=== PATIENT | female | born 1980 | race Caucasian/White ===

== ENCOUNTER → 2016-07-19 | Outpatient (CLI) | payer OTHER ==
[~2016-07-19] MED LIST: CLC100X PO; DOCU100C31 PO; GEMF600T3 PO; INSU1INJ7 SQ; INSUINJ14 SQ; LISI-725 PO; ONDA4TAB10 SL; OXYC1TAB3 PO; SIMV40TA2 PO; SULF800T23 PO
[2016-07-19 16:44] LABS: BASO % 0.2 %; BASO ABS # 0.02 K/uL (0-0.2); COMPLETE YES; EOS % 1.8 %; HEMATOCRIT 42.2 % (37-47); IG% 0.5 %; LYMPH % 32.6 %; LYMPH ABS # 3.53 K/uL (1.2-3.4); MEAN CELL VOLUME 82.6 fL (80-100); MEAN CORPUSCULAR HEMOGLOBIN 27.8 pg (25-34); MEAN CORPUSCULAR HGB CONC 33.6 g/dl (32-36); MEAN PLATELET VOLUME 9.8 fL (7.4-10.4); MONO % 5.3 %; NEUT % 59.6 %; PLATELET COUNT 211 K/uL (130-400); RED BLOOD COUNT 5.11 M/uL (4.2-5.4); WHITE BLOOD COUNT 10.83 K/uL (4.8-10.8)
[2016-07-19 17:08] LABS: THYROID STIMULATING HORMONE 1.67 uIu/ml (0.300-4.500)
== END | disposition home or self-care (01) ==
LOC: C.LAB1850 15:31
PROVIDERS: ATTEND Nurse Practitioner
DX: R63.4 Abnormal weight loss (principal)

== ENCOUNTER → 2016-07-19 | Outpatient (CLI) | payer OTHER ==
--- NOTE | 2016-07-19 10:26 | DIAGNOSTIC IMAGING REPORT ---
TWO VIEW CHEST CLINICAL HISTORY: Weight loss. FINDINGS: PA and lateral chest radiographs are obtained. No prior studies are available for comparison at the time of dictation. Examination is degraded by large body habitus. The cardiomediastinal silhouette is unremarkable. The lungs and pleural spaces are clear. There is no pneumothorax. The bony thorax appears intact. IMPRESSION: No active disease in the chest. Electronically signed by: Fernando Mcgraw M.D. 07/19/2016 10:24 AM Dictated Date/Time: 07/19/2016 10:22 AM
== END | disposition home or self-care (01) ==
LOC: C.RADBBURG 10:02
PROVIDERS: ATTEND Nurse Practitioner
DX: R63.4 Abnormal weight loss (principal)

== ENCOUNTER → 2016-10-09 | Outpatient (CLI) | payer OTHER ==
--- NOTE | 2016-10-09 14:31 | DIAGNOSTIC IMAGING REPORT ---
L-SPINE MIN 4 VIEWS ROUTINE CLINICAL HISTORY: Lumbar back pain. COMPARISON: None FINDINGS: An intrauterine device is incidentally noted within the pelvis. Alignment of the lumbar spine is anatomic. Vertebral body heights are maintained. Minimally calcified disc material at the L3-L4 and L4-L5 levels are present. There may be mild to moderate central canal stenosis which is suboptimally assessed on this exam. IMPRESSION: 1. No lumbar spine fracture or subluxation. 2. Partially calcified disc material at the L3-L4 and L4-L5 levels with suspected mild to moderate central canal stenosis which is suboptimally assessed by radiography. Electronically signed by: Otis Nicholson M.D. 10/09/2016 2:29 PM Dictated Date/Time: 10/09/2016 2:23 PM
--- NOTE | 2016-10-09 14:34 | DIAGNOSTIC IMAGING REPORT ---
C-SPINE ROUTINE 4 OR 5 VIEWS CLINICAL HISTORY: Neck pain. COMPARISON STUDY: Cervical spine radiographs December 09, 2012. FINDINGS: Slight reversal of the normal cervical lordosis is unchanged. Vertebral body heights are maintained. There is no fracture or suspicious lesion. Minimal endplate osteophytosis is noted. There is mild multilevel facet arthrosis. IMPRESSION: 1. No cervical spine fracture. 2. Mild multilevel degenerative disc disease and facet arthrosis of the cervical spine. Electronically signed by: Otis Nicholson M.D. 10/09/2016 2:32 PM Dictated Date/Time: 10/09/2016 2:29 PM
== END | disposition home or self-care (01) ==
LOC: C.RAD1850 13:49
PROVIDERS: ATTEND Physician Assistant Medical
DX: M54.5 Low back pain (principal); M50.30 Other cervical disc degeneration, unspecified cervical region

== ENCOUNTER → 2016-10-23 | Outpatient (CLI) | payer OTHER ==
[2016-10-23 17:34] LABS: HEMATOCRIT 43.8 % (37-47); MEAN CELL VOLUME 84.2 fL (80-100); MEAN CORPUSCULAR HEMOGLOBIN 27.9 pg (25-34); MEAN CORPUSCULAR HGB CONC 33.1 g/dl (32-36); PLATELET COUNT 216 K/uL (130-400); WHITE BLOOD COUNT 11.58 K/uL (4.8-10.8)
[2016-10-23 17:48] LABS: ALT/SGPT 23 U/L (12-78); AST/SGOT 14 U/L (15-37); BLOOD UREA NITROGEN 9 mg/dl (7-18); BUN/CREATININE RATIO 11.9 (10-20); CALCIUM 8.6 mg/dl (8.5-10.1); CARBON DIOXIDE 29 mmol/L (21-32); CHLORIDE 105 mmol/L (98-107); CREATININE 0.75 mg/dl (0.60-1.20); GLUCOSE 107 mg/dl (70-99); POTASSIUM 4.1 mmol/L (3.5-5.1); SODIUM 141 mmol/L (136-145)
[2016-10-23 17:58] LABS: ALB/GLOB RATIO 0.9 (0.9-2); ALKALINE PHOSPHATASE 64 U/L (45-117); CHOLESTEROL 231 mg/dl (0-200); CHOLESTEROL/HDL RATIO 6.4; HDL CHOLESTEROL 36 mg/dl; TRIGLYCERIDES 415 mg/dl (0-150)
[2016-10-24 06:20] LABS: ESTIMATED AVERAGE GLUCOSE 169 mg/dl; HA1C FLAG Normal (Normal)
== END | disposition home or self-care (01) ==
LOC: C.LABBFT 14:56
PROVIDERS: ATTEND Internal Medicine
DX: E11.65 Type 2 diabetes mellitus with hyperglycemia (principal); E78.5 Hyperlipidemia, unspecified; E11.29 Type 2 diabetes mellitus with other diabetic kidney complication

== ENCOUNTER 2016-11-26 20:33 | Emergency (ER) | payer OTHER ==
[~2016-11-26] VITALS: Ht 156.8 cm; Wt 125.6 kg
[~2016-11-26 20:33] MED LIST changes: -DOCU100C31 PO; -GEMF600T3 PO; -ONDA4TAB10 SL; -OXYC1TAB3 PO; -SULF800T23 PO
[2016-11-26 20:36] VITALS: TEMP 36.7; Ht 156.8 cm; Wt 125.6 kg
[2016-11-26] MEDS ORDERED: ONDANSETRON INJ 2 MG/ML 2 ML VIAL IV STA (20:51)
[2016-11-26] MEDS ORDERED: MoRPHine SULFATE 4 MG/ML 1 ML CARP\\VIAL IV STA (20:51)
[2016-11-26] MEDS ORDERED: SODIUM CHLORIDE 0.9% 1000ML 1,000 ML IV STA (20:51)
[2016-11-26] MEDS ORDERED: DOCU100C31 PO (21:05)
[2016-11-26] MEDS ORDERED: GEMF600T3 PO (21:06)
[2016-11-26 21:10] LABS: BASO % 0.2 %; BASO ABS # 0.02 K/uL (0-0.2); COMPLETE YES; EOS % 1.2 %; HEMATOCRIT 45.2 % (37-47); IG% 0.3 %; LYMPH % 30.8 %; MEAN CELL VOLUME 83.5 fL (80-100); MEAN CORPUSCULAR HEMOGLOBIN 27.7 pg (25-34); MEAN CORPUSCULAR HGB CONC 33.2 g/dl (32-36); MEAN PLATELET VOLUME 9.7 fL (7.4-10.4); MONO % 5.7 %; NEUT % 61.8 %; PLATELET COUNT 204 K/uL (130-400); RED BLOOD COUNT 5.41 M/uL (4.2-5.4)
[2016-11-26 21:10] LABS: URINE APPEARANCE CLOUDY (CLEAR); URINE COLOR DK YELLOW; URINE EPITHELIAL CELL AUTO >30 /lpf (0-5); URINE NITRITE NEG (NEG); URINE SPECIFIC GRAVITY 1.029 (1.000-1.030); UROBILINOGEN NEG (NEG)
[2016-11-26 21:12] LABS: MANUAL MICROSCOPIC REQUIRED? NO; REVIEW REQ? YES
[2016-11-26 21:13] LABS: URINE BILIRUBIN NEG (NEG)
[2016-11-26 21:28] LABS: BUN/CREATININE RATIO 13.4 (10-20); CREATININE 0.88 mg/dl (0.60-1.20); POTASSIUM 3.8 mmol/L (3.5-5.1)
[2016-11-26] MEDS ORDERED: HYDROmorphone INJ 1 MG/ML SYR IV STA (21:50)
--- NOTE | 2016-11-26 21:54 | DIAGNOSTIC IMAGING REPORT ---
CT OF THE ABDOMEN AND PELVIS WITHOUT CONTRAST, STONE PROTOCOL CLINICAL HISTORY: Right flank pain. COMPARISON STUDY: CT of the abdomen and pelvis February 24, 2013. TECHNIQUE: Helical axial images of the abdomen and pelvis were obtained without IV or oral contrast according to renal stone protocol. FINDINGS: No renal, ureteral or bladder calculi are present. There is no hydronephrosis or ureter. An intrauterine device is in place. Evaluation of the abdomen and pelvis is suboptimal on this unenhanced exam. Unenhanced images of liver, spleen, adrenal glands and pancreas are unremarkable. Borderline splenomegaly is unchanged. There is no evidence for a bowel obstruction. The appendix is normal. No ascites is present. There is a tiny fat-containing umbilical hernia. The ovaries are not enlarged. No suspicious skeletal lesions are identified. No pneumatosis, free air or portal venous gas is present. IMPRESSION: 1. No urinary calculi or hydronephrosis. 2. No acute process within the abdomen or pelvis on unenhanced exam. Normal appendix. Electronically signed by: Otis Nicholson M.D. 11/26/2016 9:53 PM Dictated Date/Time: 11/26/2016 9:46 PM
[2016-11-26 22:04] LABS: CALCIUM 8.7 mg/dl (8.5-10.1)
[2016-11-26] MEDS ORDERED: SULFAMETHOXAZOLE/TRIMETHOPRIM DS 800/160MG TAB PO STA (22:06)
[2016-11-26] MEDS ORDERED: ONDA4TAB10 SL (22:11)
[2016-11-26] MEDS ORDERED: OXYC1TAB3 PO (22:11)
[2016-11-26] MEDS ORDERED: SULF800T23 PO (22:11)
[2016-11-26] MEDS ORDERED: ONDANSETRON HOME PACK 4MG OD TAB PO ONE (22:15)
[2016-11-26] MEDS ORDERED: OXYCODONE IR HOME PACK PO ONE (22:15)
[2016-11-26 22:18] VITALS: BP 128/85; PULSE 70; O2SAT 96
--- NOTE | 2016-11-27 00:03 | EMERGENCY ROOM VISIT NOTE ---
History Report prepared by Familia: Ivonne Rizzo Under the Supervision of: Dr. Anam Crum M.D. First contact with patient: 20:47 Chief Complaint: FLANK PAIN Stated Complaint: BACK PAIN,NAUSEA,THROWING UP History of Present Illness The patient is a 36 year old female who presents to the Emergency Room with complaints of intermittent right flank pain beginning last night. She describes the pain as sharp in sensation. The patient is experiencing nausea and vomiting. She has a history of kidney stones and states that this feels similar to her last stone but the pain is more severe. The patient states that she took about 20 Ibuprofen today with no relief of her symptoms. She denies urinary symptoms such as burning, blood in urine or increased frequency. She denies chance of as she has an IUD. Source of History: patient Onset: last night Position: other (right flank) Timing: intermittent Associated Symptoms: + nausea, + vomiting, No SOB, No chest pain, No urinary symptoms Review of Systems See HPI for pertinent positives & negatives. A total of 10 systems reviewed and were otherwise negative. Past Medical & Surgical Medical Problems: (1) DIAB ISAIAH WO COMPL, TYPE II OR UNSPEC TYPE, NOT UNCNTRLD (2) HYPERLIPIDEMIA NEC/NOS (3) MORBID OBESITY Family History Cancer Diabetes mellitus FHx: gallbladder disease Heart disease Hypertension Kidney disease Kidney stones Lung disease Social History Smoking Status: Current Every Day Smoker Marital Status: single Housing Status: lives with family Occupation Status: employed Current/Historical Medications Scheduled Gemfibrozil (Lopid), 600 MG PO BID Insulin Aspart (Novolog Penfill), 45 UNITS SQ AC Insulin Glargine (Lantus), 80 UNITS SQ QAM Lisinopril (Zestril), 20 MG PO DAILY Ondasetron Odt (Zofran Odt), 4 MG SL Q6H Simvastatin (Zocor), 40 MG PO QPM Sulfa/Trimethoprim (Bactrim Ds 800MG/160MG), 1 TAB PO BID Scheduled PRN Docusate Sodium (Docusate Sodium), 100 MG PO BID PRN for Constipation Oxycodone Ir (Roxicodone Ir), 5 MG PO Q4H PRN for Pain Allergies Coded Allergies: Acetaminophen (Verified Allergy, Intermediate, Vomiting, 03/12/16) Quinolones (Unverified Adverse Reaction, Mild, rapid eye movements, dizziness, 03/12/16) Physical Exam Vital Signs Date Time Temp Pulse Resp B/P Pulse Ox O2 Delivery O2 Flow Rate FiO2 11/26/16 22:18 70 18 128/85 96 Room Air 11/26/16 20:36 36.7 85 18 178/100 96 Room Air Physical Exam Constitutional: Vital signs reviewed. Eyes: Pupils are equal round reactive to light. Conjunctiva are noninjected. ENT: Pharynx is clear without erythema or exudate. Mucous membranes are moist. Neck supple without meningeal signs. Respiratory: Clear to auscultation bilaterally. Breath sounds are equal bilaterally. Cardiovascular: Regular rate and rhythm. No rubs or gallops. GI: Mild right upper quadrant tenderness. No guarding. Soft and nondistended. Bowel sounds are present. Musculoskeletal: No peripheral edema. No lower extremity tenderness. No CVA tenderness. Integumentary: No cyanosis. Neurological: The patient is awake and alert. No focal deficits. Psychiatric: Normal affect. Medical Decision & Procedures ER Provider Diagnostic Interpretation: CT results as stated below per my review and radiologist interpretation. CT OF THE ABDOMEN AND PELVIS WITHOUT CONTRAST, STONE PROTOCOL CLINICAL HISTORY: Right flank pain. COMPARISON STUDY: CT of the abdomen and pelvis February 24, 2013. TECHNIQUE: Helical axial images of the abdomen and pelvis were obtained without IV or oral contrast according to renal stone protocol. FINDINGS: No renal, ureteral or bladder calculi are present. There is no hydronephrosis or ureter. An intrauterine device is in place. Evaluation of the abdomen and pelvis is suboptimal on this unenhanced exam. Unenhanced images of liver, spleen, adrenal glands and pancreas are unremarkable. Borderline splenomegaly is unchanged. There is no evidence for a bowel obstruction. The appendix is normal. No ascites is present. There is a tiny fat-containing umbilical hernia. The ovaries are not enlarged. No suspicious skeletal lesions are identified. No pneumatosis, free air or portal venous gas is present. IMPRESSION: 1. No urinary calculi or hydronephrosis. 2. No acute process within the abdomen or pelvis on unenhanced exam. Normal appendix. Electronically signed by: Otis Nicholson M.D. 11/26/2016 9:53 PM Dictated Date/Time: 11/26/2016 9:46 PM Laboratory Results 11/26/16 21:00 Red Blood Count 5.41, Mean Corpuscular Volume 83.5, Mean Corpuscular Hemoglobin 27.7, Mean Corpuscular Hemoglobin Concent 33.2, Mean Platelet Volume 9.7, Neutrophils (%) (Auto) 61.8, Lymphocytes (%) (Auto) 30.8, Monocytes (%) (Auto) 5.7, Eosinophils (%) (Auto) 1.2, Basophils (%) (Auto) 0.2, Neutrophils # (Auto) 8.22, Lymphocytes # (Auto) 4.10, Monocytes # (Auto) 0.76, Eosinophils # (Auto) 0.16, Basophils # (Auto) 0.02 11/26/16 21:00 Test 11/26/16 20:55 11/26/16 21:00 Urine Color DK YELLOW Urine Appearance CLOUDY (CLEAR) Urine pH 6.0 (4.5-7.5) Urine Specific [place] 1.029 (1.000-1.030) Urine Protein 1+ (NEG) Urine Glucose (UA) NEG (NEG) Urine Ketones TRACE (NEG) Urine Occult Blood 2+ (NEG) Urine Nitrite NEG (NEG) Urine Bilirubin NEG (NEG) Urine Urobilinogen NEG (NEG) Urine Leukocyte Esterase SMALL (NEG) Urine WBC (Auto) >30 /hpf (0-5) Urine RBC (Auto) 5-10 /hpf (0-4) Urine Hyaline Casts (Auto) 1-5 /lpf (0-5) Urine Epithelial Cells (Auto) >30 /lpf (0-5) Urine Bacteria (Auto) 2+ (NEG) Urine Pathogenic Casts /lpf (0) Urine Test NEG (NEG) White Blood Count 13.30 K/uL (4.8-10.8) Red Blood Count 5.41 M/uL (4.2-5.4) Hemoglobin 15.0 g/dL (12.0-16.0) Hematocrit 45.2 % (37-47) Mean Corpuscular Volume 83.5 fL (80-100) Mean Corpuscular Hemoglobin 27.7 pg (25-34) Mean Corpuscular Hemoglobin Concent 33.2 g/dl (32-36) Platelet Count 204 K/uL (130-400) Mean Platelet Volume 9.7 fL (7.4-10.4) Neutrophils (%) (Auto) 61.8 % Lymphocytes (%) (Auto) 30.8 % Monocytes (%) (Auto) 5.7 % Eosinophils (%) (Auto) 1.2 % Basophils (%) (Auto) 0.2 % Neutrophils # (Auto) 8.22 K/uL (1.4-6.5) Lymphocytes # (Auto) 4.10 K/uL (1.2-3.4) Monocytes # (Auto) 0.76 K/uL (0.11-0.59) Eosinophils # (Auto) 0.16 K/uL (0-0.5) Basophils # (Auto) 0.02 K/uL (0-0.2) RDW Standard Deviation 43.5 fL (36.4-46.3) RDW Coefficient of Variation 14.2 % (11.5-14.5) Immature Granulocyte % (Auto) 0.3 % Immature Granulocyte # (Auto) 0.04 K/uL (0.00-0.02) Anion Gap 9.0 mmol/L (3-11) Est Creatinine Clear Calc Drug Dose 111.5 ml/min Estimated GFR () 98.0 Estimated GFR (Non- 84.5 BUN/Creatinine Ratio 13.4 (10-20) Calcium Level 8.7 mg/dl (8.5-10.1) Total Bilirubin 0.8 mg/dl (0.2-1) Direct Bilirubin 0.1 mg/dl (0-0.2) Aspartate Amino Transf (AST/SGOT) 11 U/L (15-37) Alanine Aminotransferase (ALT/SGPT) 17 U/L (12-78) Alkaline Phosphatase 63 U/L (45-117) Total Protein 7.7 gm/dl (6.4-8.2) Albumin 3.7 gm/dl (3.4-5.0) Lipase 174 U/L (73-393) Laboratory results as reviewed by me. Medications Administered Medications (Trade) Dose Ordered Sig/Juani Route Start Time Stop Time Status Last Admin Dose Admin Morphine Sulfate (MoRPHine SULFATE INJ) 4 mg ONE STAT IV 11/26/16 20:51 11/26/16 20:52 DC 11/26/16 21:08 4 MG Ondansetron HCl 4 mg 4 mg NOW STAT IV 11/26/16 20:51 11/26/16 20:52 DC 11/26/16 21:06 4 MG Sodium Chloride (Nss 1000ml) 1,000 ml @ 999 mls/hr Q1H1M STAT IV 11/26/16 20:51 11/26/16 21:51 DC 11/26/16 21:06 999 MLS/HR Hydromorphone HCl (Dilaudid Inj) 0.5 mg NOW STAT IV 11/26/16 21:50 11/26/16 21:51 DC 11/26/16 21:57 0.5 MG Trimethoprim/ Sulfamethoxazole (Septra Ds 800/ 160MG Tab) 1 tab NOW STAT PO 11/26/16 22:06 11/26/16 22:09 DC 11/26/16 22:14 1 TAB Oxycodone HCl (Roxicodone Immediate Rel 5MG Home Pack) 1 homepack UD ONCE PO 11/26/16 22:15 11/26/16 22:16 DC 11/26/16 22:15 1 HOMEPACK Ondansetron HCl (ZOFRAN ODT 4MG Home Pack) 1 homepack UD ONCE PO 11/26/16 22:15 11/26/16 22:16 DC 11/26/16 22:15 1 HOMEPACK ED Course 2047: The patient was evaluated in room B9. A complete history and physical exam was performed. 2050: Sodium Chloride 1,000 ml @ 999 mls/hr IV, Zofran Inj 4 mg IV, Morphine Sulfate Inj 4 mg IV. 2149: Dilaudid Inj 0.5 mg IV. 2205: Septra Ds 800/ 160 MG Tab 1 tab PO. 2208: The patient is feeling better. I discussed her test results. 5: Zofran ODT 4 mg Home Pack 1 homepack PO, Roxicodone Immediate Rel 5 mg Home Pack 1 homepack PO. 2217: Upon reevaluation, the patient appeared to have improvement of her symptoms. I discussed tonight's findings with her. She verbalized agreement of the treatment plan. She was discharged home. Medical Decision This is a 36-year-old female who presents with flank pain. Differential diagnosis includes renal colic, hydronephrosis, UTI, pyelonephritis, gallbladder disease. I did perform a limited focused review of portions of the patient's old chart on the electronic medical record. The patient has had no recent pertinent visits to this hospital. Medication Reconciliation: I attest that I have personally reviewed the patient' s current medication list. Blood Pressure Screening: Patient was found to have an elevated blood pressure and was referred to their primary doctor for recheck and further treatment. I did evaluate the patient as noted above. The patient is presenting with right flank pain. She states it feels similar to her prior kidney stone pain. IV access was established. I did treat her with IV morphine and Zofran. She was also given normal saline IV. She did feel better but still had pain and so was given Dilaudid 0.5 mg IV. I did order and personally review the patient's urinalysis as described above. She does have evidence of infection. A urine culture was sent. Urine was negative. I did order and review the patient's blood work as noted in the electronic medical record. Her white blood cell count is slightly elevated. I did order a CT of the abdomen and pelvis. I did review the images myself as well as the radiology report as described above. There is no evidence of kidney stone. There is no evidence of acute process. I did reassess the patient. She is feeling better. I did discuss the test results with the patient. I will treat her for a UTI and advise close follow up with her doctor. She was given Bactrim and she is allergic to quinolones. She was given a home pack for Zofran and oxycodone. She was given precautions regarding oxycodone and discharged with a prescription for Bactrim and oxycodone and Zofran. She was given return instructions as outlined below. [place] Drug Monitoring Program Search Results: patient reviewed within database, no issues identified Impression Primary Impression: Urinary tract infection Additional Impression: Right flank pain Scribe Attestation The scribe's documentation has been prepared under my direct and personally reviewed by me in its entirety. I confirm that the note above accurately reflects all work, treatment, procedures, and medical decision making performed by me. Departure Information Dispostion Home / Self-Care Prescriptions Ondasetron Odt (ZOFRAN ODT) 4 Mg Tab 4 MG SL Q6H for Nausea, #6 TAB Prov: Anam Crum M.D. 11/26/16 Oxycodone Ir (Roxicodone Ir) 5 Mg Tab 5 MG PO Q4H Y for Pain, #10 TAB Prov: Anam Crum M.D. 11/26/16 Sulfa/Trimethoprim (Bactrim Ds 800MG/160MG) Tab 1 TAB PO BID, #20 TAB Prov: Anam Crum M.D. 11/26/16 Referrals Rodriguez Dennis M.D. (PCP) Forms HOME CARE DOCUMENTATION FORM, IMPORTANT VISIT INFORMATION Patient Instructions ED Flank Pain Uncertain Cause, My [facility], UTI Additional Instructions You have been examined and treated today on an emergency basis only. This is not a substitute for, or an effort to provide, complete comprehensive medical care. It is impossible to recognize and treat all injuries or illnesses in a single emergency department visit. It is therefore important that you follow up closely with your physician. Call as soon as possible for an appointment. Return for worsening symptoms or if you develop fever, chest pain, shortness of breath or any other concerning symptoms. Problem Qualifiers Primary Impression: Urinary tract infection Urinary tract infection type: site unspecified Hematuria presence: with hematuria Qualified Codes: N39.0 - Urinary tract infection, site not specified ; R31.9 - Hematuria, unspecified
== END 2016-11-26 22:28 | disposition home or self-care (01) ==
LOC: C.EDB 20:34
DX: N39.0 Urinary tract infection, site not specified (principal); Z87.442 Personal history of urinary calculi; Z97.5 Presence of (intrauterine) contraceptive device; E11.9 Type 2 diabetes mellitus without complications; E78.5 Hyperlipidemia, unspecified; E66.01 Morbid (severe) obesity due to excess calories; Z68.43 Body mass index [BMI] 50.0-59.9, adult; Z80.9 Family history of malignant neoplasm, unspecified; Z83.3 Family history of diabetes mellitus; Z82.49 Family history of ischemic heart disease and other diseases of the circulatory system; Z84.1 Family history of disorders of kidney and ureter; F17.210 Nicotine dependence, cigarettes, uncomplicated; Z79.4 Long term (current) use of insulin; Z79.899 Other long term (current) drug therapy

== ENCOUNTER → 2017-10-16 | Outpatient (CLI) | payer OTHER ==
[~2017-10-16] MED LIST changes: -CLC100X PO; +DOCU100C31 PO; +GEMF600T3 PO
[2017-10-16 12:31] LABS: HEMOGLOBIN A1C 11.2 % (4.5-5.6)
== END | disposition home or self-care (01) ==
LOC: C.LABBFT 11:05
PROVIDERS: ATTEND Physician Assistant Medical
DX: E11.65 Type 2 diabetes mellitus with hyperglycemia (principal)

== ENCOUNTER 2025-02-14 17:53 | Inpatient (IN) ==
--- NOTE | 2025-02-14 18:19 | Emergency Department Note ---
Impression & Plan Cellulitis of left foot ED Provider Note CHIEF COMPLAINT: Foot pain HISTORY OF PRESENTING ILLNESS: The patient is a 44-year-old female who arrives to the emergency department for evaluation of left foot pain. She reports history of diabetes type 2, poorly controlled. She states past medical history of hidradenitis suppurativa, with multiple abscesses that have required incision and drainage, however never a abscess to the foot. She reports she noticed it approximately 2 days ago, however it is significantly worsened. She states there is drainage present, and she is concerned for worsening infection. She denies fever, proximal extremity pain, or limited range of motion. She is able to ambulate, however slightly painful. She is resting in the room upon arrival, comfortable appearing, eating. REVIEW OF SYSTEMS: See HPI for pertinent positives and pertinent negatives. ALLERGIES: See below MEDICATIONS: See below PAST MEDICAL HISTORY: See below PHYSICAL EXAM: VITALS: Vitals are noted on the nurse's note and reviewed by myself. Vital signs stable. GENERAL: 44-year-old female, in no acute distress, nondiaphoretic, well- developed well-nourished. SKIN: Dorsal left foot, erythema, induration, extending between the 4th and 5th digits, crusting noted. HEART: Regular rate and rhythm without murmurs gallops or rubs. LUNGS: Clear to auscultation bilaterally without wheezes, rales or rhonchi. No dullness to percussion. No retractions or accessory muscle use. MUSCULOSKELETAL: Full ROM, digits of the left foot. Tenderness to palpation dorsal aspect, of distal foot, just proximal to digits. Sensation intact to dull and sharp of distal foot, and digits. DP pulse intact. NEURO: Patient was alert and oriented to person place and time. Normal sensation to light and sharp touch. Deep tendon reflexes 2+ throughout. No focal neurological deficits. DIFFERENTIAL DIAGNOSIS: Cellulitis, infection, MRSA, abscess, osteomyelitis, as well as other pathologies. ED COURSE AND MEDICAL DECISION MAKING: MEDICATIONS GIVEN: Morphine 4 mg IV, oxycodone 5 mg p.o., vancomycin 2750 mg, Zosyn 4.5 g. INTERPRETATION OF LABS: I interpreted the labs with full lab results as below in the lab section of this note. Pertinent lab results discussed in the MDM section below. INTERPRETATION OF IMAGING: Imaging studies were interpreted by myself and read by radiology as per the imaging section of this note. CHRONIC MEDICAL/SOCIAL CONDITIONS AFFECTING CARE: Uncontrolled DM2 CONSULTATIONS: Dr. Yost, podiatry. MDM SUMMARY: The patient is a pleasant, 44-year-old female who arrives to the emergency department for evaluation of the above-stated complaint. Saline lock was established, CBC, CMP were obtained. Lab work shows no leukocytosis, no anemia. CMP shows elevated glucose at 302, with no other concerning findings. CT imaging of the foot was obtained which shows no abscess, however physical examination shows findings consistent with likely abscess formation. After cleaning the area, it does appear there were 2 foreign body hairs that were removed from a small open area between the digits. Drainage was present, and collected for wound culture. Due to the patient's complicated medical history, with uncontrolled diabetes, and likely diabetic neuropathy, she will require admission for IV antibiotics, incision and drainage, and close watch. I spoke with Dr. Yost, from podiatry who agreed to evaluate the patient in the morning. [facility], with broad-spectrum IV coverage administered. Please refer to their documentation for further patient workup and care. DIAGNOSIS: Cellulitis of left foot The chart was completed utilizing [employer] Speech voice recognition software. Grammatical errors, random word insertions, pronoun errors, and incomplete sentences are an occasional consequence of this system due to software limitations, ambient noise, and hardware issues. Any formal questions or concerns about the content, text, or information contained within the body of this dictation should be directly addressed to the provider for clarification. Past Med/Surg History Problem List (Updated 02/17/25 @ 01:47 by OSIRIS Razo) Cellulitis of left foot (Acute) Hyperglycemia due to diabetes mellitus Hyperglycemia (Acute) Urinary urgency Intertrigo (Chronic) Necrobiosis lipoidica diabeticorum (Acute) Hidradenitis suppurativa (Acute) Lumbar back pain (Acute) Depression with anxiety (Chronic) Anxiety (Acute) Constipation (Acute) Endometrial polyp (Acute) Essential hypertriglyceridemia (Acute) Hyperlipidemia (Chronic) Microalbuminuria (Acute) Vitamin D deficiency (Acute) Medical History Encounter for pre-operative examination Morbid obesity Diabetes mellitus type 2, uncontrolled Tobacco abuse Diabetic infection of left foot PVD (peripheral vascular disease) Acute cholecystitis Cholecystitis Cellulitis and abscess of upper arm Surgical History Hx laparoscopic cholecystectomy (12/01/24) Laparoscopic Cholecystectomy - Carlos Wilson DO History of D&C Family History Mother Diabetes Father Lung cancer Myocardial infarction Grandfather Myocardial infarction Aunt Breast cancer Ovarian cancer Uncle Alzheimer disease Denies family history of Prostate cancer Colorectal cancer Social History Smoking Status: Current every day smoker Tobacco Type: Cigarettes Age Started Using Tobacco: 0; packs per day: 0; Cigarettes Per Day: 10 cigarettes/half a pack a day; Second Hand Exposure: No; Do You Dip or Chew Tobacco: No; Hx Alcohol Use: No Hx Substance Use: No Preferred Language: Occitan Communication Ability: Effective Visual Impairment: No Limitations Hearing Ability: Normal Bias Cutting Machine Operator Required: No Beliefs That Will Affect Care: None Current Living Situation: Spouse and Family Current Living Situation Comment: lives at home with and daughter current occupational status: employed Feels Safe at Home: Yes Assistive Devices: None Allergies Allergies Allergy/AdvReac Type Severity Reaction Status Date / Time acetaminophen Allergy Intermediate Vomiting Verified 12/15/24 14:05 hydromorphone [From Dilaudid] AdvReac Severe "I forget Verified 12/15/24 14:05 to breath" levofloxacin [From Levaquin] AdvReac Mild dizziness Verified 12/15/24 14:05 and rash Quinolones AdvReac Mild rapid eye Verified 12/15/24 14:05 movements, dizziness Home Meds Home Medications Medication Instructions Recorded Confirmed insulin glargine 100 unit/mL (3 34 unit subcut DAILY 01/11/25 02/14/25 mL) subcutaneous pen (Lantus Solostar U-100 Insulin) Previous Rx's Medication Instructions Recorded blood-glucose meter (OneTouch #1 ea 04/05/22 Ultra2 Meter kit) blood sugar diagnostic (Contour #100 ea 12/07/24 Next Test Strips) lancets (Microlet Lancet) #100 ea 12/07/24 pen needle, diabetic 32 gauge x #100 ea 12/07/24 5/32" (Pen Needle) rosuvastatin 20 mg tablet 20 mg PO QAM High cholesterol #30 12/07/24 tabs blood-glucose sensor (Dexcom G7 #3 ea 01/11/25 Sensor device) blood-glucose,clinical phlebotomist,cont #1 ea 01/11/25 (Dexcom G7 [place]) metformin 500 mg tablet,extended 500 mg PO BID #60 tabs 01/11/25 release 24 hr Results & Data (ED) Vital Signs Vital Signs - 24 hr 02/14/25 18:10 Temperature 36.9 C Temperature Source Temporal Artery Scan Pulse Rate 101 H Respiratory Rate 16 Respiratory Effort / Characteristics Non-Labored Spontaneous Respiratory Depth Normal Respiratory Pattern Regular Blood Pressure 137/86 Blood Pressure Mean 103 Pulse Oximetry 98 Oxygen Delivery Method Room Air Sepsis Recent Fever Within 48 Hours No Sepsis New/Unexplained Change in Mental Status No Sepsis Action Taken by Nursing No Action Required Home Medications Current Medication List: was personally reviewed by me Laboratory Data Attestation: I reviewed the patient's lab results. 02/16/25 07:53 02/16/25 07:53 Lab Results 02/14/25 Range/Units 18:29 WBC 9.82 (4.8-10.8) K/ul RBC 5.29 (4.20-5.40) M/uL Hgb 13.9 (12.0-16.0) g/dl Hct 42.3 (37.0-47.0) % MCV 80.0 (80.0-100.0) fL MCH 26.3 (25.0-34.0) pg MCHC 32.9 (32.0-36.0) g/dL RDW Std Deviation 41.7 (36.4-46.3) fL RDW Coeff of Tre 14.4 (11.5-14.5) % Plt Count 210 (130-400) K/uL MPV 9.4 (9.4-12.4) fL Immature Gran % (Auto) 0.4 % Neut % (Auto) 63.8 % Lymph % (Auto) 28.9 % Morton % (Auto) 5.3 % Eos % (Auto) 1.3 % Baso % (Auto) 0.3 % Neut # (Auto) 6.26 (1.40-6.50) K/uL Lymph # (Auto) 2.84 (1.20-3.40) K/uL Morton # (Auto) 0.52 (0.11-0.59) K/uL Eos # (Auto) 0.13 (0.00-0.50) K/uL Baso # (Auto) 0.03 (0.00-0.20) K/uL Immature Gran # (Auto) 0.04 (0.01-0.20) K/uL Sodium 136 (136-145) mmol/L Potassium 4.0 (3.5-5.1) mmol/L Chloride 101 (98-107) mmol/L Carbon Dioxide 29 (21-32) mmol/L Anion Gap 6 (3-11) BUN 11 (6-23) mg/dl Creatinine 0.82 (0.6-1.2) mg/dl Est Cr Clr Drug Dosing Not Reportable eGFR 90.40 BUN/Creatinine Ratio 13.4 (10-20) Glucose 302 H* (70-99(Fasting)) mg/dl Calcium 9.4 (8.6-10.3) mg/dl Total Bilirubin 0.6 (0.2-1.0) mg/dl AST 13 (13-39) U/L ALT 13 (7-52) U/L Alkaline Phosphatase 101 (34-104) U/L Total Protein 7.2 (6.0-8.3) gm/dl Albumin 3.8 (3.4-5.0) gm/dl Globulin 3.4 (2.5-4.0) gm/dl Albumin/Globulin Ratio 1.1 (0.9-2) Administered Medications Vancomycin HCl 1,250 mg/ (Sodium Chloride) 275 mls @ 200 mls/hr IV Q12H [facility] Stop: 02/22/25 11:59 Last Infusion: 02/17/25 00:48 Dose: Infused Documented By: Admin: 02/16/25 23:25 Dose: 200 mls/hr Documented By: Infusion: 02/16/25 13:51 Dose: Infused Documented By: jewel Admin: 02/16/25 12:20 Dose: 200 mls/hr Documented By: jewel Infusion: 02/16/25 01:24 Dose: Infused Documented By: Admin: 02/16/25 00:01 Dose: 200 mls/hr Documented By: Infusion: 02/15/25 13:01 Dose: Infused Documented By: Admin: 02/15/25 11:37 Dose: 200 mls/hr Documented By: LILLY Piperacillin Sod/Tazobactam Sod (Zosyn) 4.5 gm in 100 mls @ 25 mls/hr IV Q8H [facility]; Protocol Stop: 02/22/25 03:59 Last Infusion: 02/16/25 23:33 Dose: Infused Documented By: Admin: 02/16/25 19:27 Dose: 25 mls/hr Documented By: Infusion: 02/16/25 16:44 Dose: Infused Documented By: jewel Admin: 02/16/25 12:21 Dose: 25 mls/hr Documented By: jewel Infusion: 02/16/25 09:03 Dose: Infused Documented By: jewel Admin: 02/16/25 04:48 Dose: 25 mls/hr Documented By: Infusion: 02/16/25 00:42 Dose: Infused Documented By: Admin: 02/15/25 20:42 Dose: 25 mls/hr Documented By: Infusion: 02/15/25 17:03 Dose: Infused Documented By: Admin: 02/15/25 12:52 Dose: 25 mls/hr Documented By: Infusion: 02/15/25 09:08 Dose: Infused Documented By: Admin: 02/15/25 04:33 Dose: 25 mls/hr Documented By: NISHA Insulin Aspart (Insulin Aspart Per Unit Charge) 0 units SC ACHS [facility] Stop: 03/17/25 07:29 Last Admin: 02/16/25 20:31 Dose: 3 units Documented By: NISHA Co-signed By: MARY Admin: 02/16/25 18:28 Dose: 6 units Documented By: jewel Co-signed By: LILLY Admin: 02/16/25 13:29 Dose: 9 units Documented By: jewel Co-signed By: LILLY Admin: 02/16/25 09:17 Dose: 10 units Documented By: jewel Co-signed By: LILLY Admin: 02/15/25 20:41 Dose: Not Given Documented By: Admin: 02/15/25 18:18 Dose: Not Given Documented By: Admin: 02/15/25 12:58 Dose: 2 units Documented By: LILLY Co-signed By: KKS Admin: 02/15/25 09:37 Dose: 11 units Documented By: LILLY Co-signed By: CASPER Insulin Glargine (Lantus Per Unit Charge) 34 units SQ DAILY [facility] Stop: 03/17/25 08:59 Last Admin: 02/16/25 08:52 Dose: 34 units Documented By: jewel Co-signed By: LILLY Admin: 02/15/25 09:37 Dose: 34 units Documented By: LILLY Co-signed By: CASPER Metformin HCl (Metformin Hcl Er 500 Mg Tabcr) 500 mg PO BID [facility] Stop: 03/17/25 20:59 Last Admin: 02/16/25 20:31 Dose: 500 mg Documented By: Admin: 02/16/25 08:26 Dose: 500 mg Documented By: jewel Admin: 02/15/25 20:43 Dose: 500 mg Documented By: NISHA Morphine Sulfate (Morphine Sulfate 4 Mg/Ml 1 Ml Carp\\Vial) 4 mg IV Q4H PRN PRN Reason: Severe Pain (Scale 7, 8, 9,10) Stop: 03/01/25 09:59 Last Admin: 02/16/25 23:28 Dose: 4 mg Documented By: Admin: 02/16/25 18:28 Dose: 4 mg Documented By: jewel Admin: 02/16/25 13:30 Dose: 4 mg Documented By: jewel Admin: 02/16/25 08:51 Dose: 4 mg Documented By: jewel Admin: 02/16/25 04:50 Dose: 4 mg Documented By: Admin: 02/16/25 00:01 Dose: 4 mg Documented By: Admin: 02/15/25 18:28 Dose: 4 mg Documented By: LILLY Oxycodone/Acetaminophen (Oxycodone/Acetaminophen 5mg/325mg Tab) 1 tab PO Q4H PRN PRN Reason: Pain Stop: 03/01/25 09:35 Last Admin: 02/16/25 21:18 Dose: 1 tab Documented By: Admin: 02/16/25 16:43 Dose: 1 tab Documented By: jewel Admin: 02/15/25 09:58 Dose: 1 tab Documented By: LILLY Rosuvastatin Calcium (Rosuvastatin Calcium 20 Mg Tab) 20 mg PO QAM [facility] Stop: 03/17/25 08:59 Last Admin: 02/16/25 08:26 Dose: 20 mg Documented By: jewel Admin: 02/15/25 08:08 Dose: 20 mg Documented By: PLANT NURSERY WORKER Discontinued Medications Bupivacaine HCl (Bupivacaine 0.5 % 5 Mg/1 Ml Mpf 30ml Vial) Confirm Administered Dose 30 ml .ROUTE .STK-MED ONE Stop: 02/15/25 16:40 Last Admin: 02/15/25 17:00 Dose: 10 ml Documented By: [id number] Fentanyl Citrate (Fentanyl Citrate Pf 100 Mcg/2 Ml Vial) 25 mcg IV Q5M PRN PRN Reason: PACU Use Only-Pain Stop: 02/15/25 23:59 Last Admin: 02/15/25 17:42 Dose: 25 mcg Documented By: Admin: 02/15/25 17:37 Dose: 25 mcg Documented By: Admin: 02/15/25 17:32 Dose: 25 mcg Documented By: Admin: 02/15/25 17:27 Dose: 25 mcg Documented By: DALE Vancomycin HCl 2,750 mg/ (Sodium Chloride) 555 mls @ 200 mls/hr IV NOW ONE Stop: 02/15/25 00:17 Last Infusion: 02/15/25 01:53 Dose: Infused Documented By: Admin: 02/14/25 23:06 Dose: 200 mls/hr Documented By: BEVERLY Metronidazole (Flagyl) 500 mg in 100 mls @ 100 mls/hr IV NOW STA; Protocol Stop: 02/14/25 22:47 Last Admin: 02/14/25 22:11 Dose: Not Given Documented By: FRED Cefepime HCl (Maxipime 2000mg) 2,000 mg in 20 mls @ 5 mls/min IV NOW STA Stop: 02/14/25 22:02 Last Admin: 02/14/25 22:11 Dose: Not Given Documented By: FRED Piperacillin Sod/Tazobactam Sod (Zosyn) 4.5 gm in 100 mls @ 200 mls/hr IV NOW ONE; Protocol Stop: 02/14/25 22:35 Last Infusion: 02/15/25 02:14 Dose: Infused Documented By: Admin: 02/14/25 22:25 Dose: 200 mls/hr Documented By: FRED Ioversol (Optiray 320 100ml) 93 ml IV ONCE ONE Stop: 02/14/25 19:40 Last Admin: 02/14/25 19:39 Dose: 93 ml Documented By: CHRISTINA Miscellaneous (Patient's Height &/Or Weight Needed) 1 each N/A Q2H STA Stop: 02/15/25 01:00 Last Admin: 02/15/25 02:11 Dose: 1 each Documented By: NISHA Oxycodone HCl (Oxycodone Hcl Ir 5 Mg Tab (Immediate Release)) 5 mg PO NOW STA Stop: 02/14/25 21:49 Last Admin: 02/14/25 22:10 Dose: 5 mg Documented By: FRED Imaging Data Attestation: I personally reviewed and interpreted this imaging study as follows: Discharge Plan Visit Data Chief Complaint: Skin Problem Stated Complaint: ABSCESS, LT FOOT ED Provider: Laurie Reynoso ED Midlevel Provider: Joana Holden Discharge Problem: Cellulitis of left foot Patient Disposition: Admitted As Inpatient Condition: Fair Discharge Instructions Interventions: ED Discharge Assessment Last Done: 02/15/25 00:13
[2025-02-14 18:43] LABS: Hematocrit (blood only) 42.3 % (37.0-47.0); Hemoglobin 13.9 g/dl (12.0-16.0); Immature Granulocytes # (auto) 0.04 K/uL (0.01-0.20); Immature Granulocytes % (auto) 0.4 %; Mean Corpuscular Hemoglobin 26.3 pg (25.0-34.0); Mean Corpuscular Volume 80.0 fL (80.0-100.0); Platelet Count 210 K/uL (130-400); RDW Standard Deviation 41.7 fL (36.4-46.3); Red Blood Count 5.29 M/uL (4.20-5.40); White Blood Count 9.82 K/ul (4.8-10.8)
[2025-02-14 19:17] LABS: Alanine Aminotransferase 13 U/L (7-52); Albumin Globulin Ratio 1.1 (0.9-2); Alkaline Phosphatase 101 U/L (34-104); Anion Gap 6 (3-11); Bilirubin,Total 0.6 mg/dl (0.2-1.0); Blood Urea Nitrogen 11 mg/dl (6-23); Calcium 9.4 mg/dl (8.6-10.3); Carbon Dioxide 29 mmol/L (21-32); Chloride 101 mmol/L (98-107); Globulin 3.4 gm/dl (2.5-4.0); Glucose 302 mg/dl (70-99(Fasting)); Potassium 4.0 mmol/L (3.5-5.1); Sodium 136 mmol/L (136-145); Total Protein 7.2 gm/dl (6.0-8.3)
[2025-02-14] MEDS: OPTIRAY 320 100ml IV ONE (19:39)
--- NOTE | 2025-02-14 20:48 | CT Scan Report ---
HISTORY: Infection/abscess. TECHNIQUE: CT of the left foot was performed with contrast. Images are presented in axial, sagittal, and coronal reformats. COMPARISON: None. FINDINGS: Extensive soft tissue swelling throughout the lower leg and ankle. Extensive soft tissue swelling is seen throughout the foot no well-developed drainable fluid collection or abscess is identified. Edema is most confluent involving the lateral aspect of the lower leg and lateral aspect of the dorsal hindfoot. The distal tibia and fibula appear intact. the bones appear intact. No obvious osseous erosion or periosteal reaction is evident.Moderate size plantar and Achilles enthesophytes are noted. There are mild degenerative changes of the foot and ankle. IMPRESSION: * Extensive soft tissue edema throughout the lower leg, ankle, and foot is most pronounced along the lateral lower leg and ankle and dorsal foot. No well-developed drainable fluid collection or abscess is seen. Findings suggesting Cellulitis. * No acute osseous abnormality. If there is clinical concern for osteomyelitis, MRI would provide a more sensitive evaluation. * Additional chronic and/or incidental findings as detailed above ACT 112: Positive. There are findings on this exam that require communication between the performing entity and the patient following Patient Test Result Information Act ([place] ACT 112) guidelines. Electronically signed by Braxton Horton 02-14-2025 8:48 PM
[2025-02-14] MEDS ORDERED: VANCOMYCIN CONSULT ACTIVE PRN (21:48)
[2025-02-14] MEDS ORDERED: CEFEPIME 2 GM VIAL IV STA (21:48)
[2025-02-14] MEDS: metroNIDAZOLE 500 MG/100 ML BAG IV STA (22:11)
[2025-02-14] MEDS: CEFEPIME 2000MG 2,000 MG/20 ML SYR IV STA (22:11)
--- NOTE | 2025-02-14 22:20 | History & Physical Report ---
Date of Service February 14, 2025 Assessment & Plan (1) Diabetic infection of left foot: (2) Hyperglycemia due to diabetes mellitus: (3) Hyperlipidemia: Plan The patient is a 44-year-old female with a past medical history including hyperglycemia associated with diabetes mellitus, tobacco abuse, necrobiosis lipoid diabeticorum, hidradenitis suppurativa, depression with anxiety, essential hypertriglyceridemia, morbid obesity, and vitamin D deficiency. She presents to the emergency department with worsening left foot pain, swelling and erythema. In the emergency department she underwent a CT scan of left foot, which showed extensive soft tissue edema throughout the lower leg, ankle and foot, which is most consistent with cellulitis and abscess. She has been referred for evaluation for admission. In emergency department she was started on vancomycin IV and Zosyn IV. Diabetic left foot infection- Continue vancomycin IV and Zosyn IV CT without drainable collection or sign of abscess Patient cannot take acetaminophen due to vomiting Oxycodone 5 mg by mouth every 6 hours as needed for moderate to severe pain Consult podiatry Hyperglycemia due to diabetes mellitus- Continue glargine 34 units subcu daily Hold metformin Placed on Accu-Cheks with NovoLog SSI Check hemoglobin A1c Hyperlipidemia- Continue rosuvastatin History of Present Illness Chief Complaint: The patient presents to the emergency department with complaint of worsening left foot pain and swelling. Primary Care Provider: Dieudonne Duque, The patient is a 44-year-old female with a past medical history including hyperglycemia associated with diabetes mellitus, tobacco abuse, necrobiosis lipoid diabeticorum, hidradenitis suppurativa, depression with anxiety, essential hypertriglyceridemia, morbid obesity, and vitamin D deficiency. She presents to the emergency department with worsening left foot pain, swelling and erythema. In the emergency department she underwent a CT scan of left foot, which showed extensive soft tissue edema throughout the lower leg, ankle and foot, which is most consistent with cellulitis and abscess. She has been referred for evaluation for admission. In emergency department she was started on vancomycin IV and Zosyn IV. Allergies Allergy/AdvReac Type Severity Reaction Status Date / Time acetaminophen Allergy Intermediate Vomiting Verified 12/15/24 14:05 hydromorphone [From Dilaudid] AdvReac Severe "I forget Verified 12/15/24 14:05 to breath" levofloxacin [From Levaquin] AdvReac Mild dizziness Verified 12/15/24 14:05 and rash Quinolones AdvReac Mild rapid eye Verified 12/15/24 14:05 movements, dizziness Home Medications Medication Instructions Recorded Confirmed Type blood-glucose meter (OneTouch #1 ea 04/05/22 12/15/24 Rx Ultra2 Meter kit) blood sugar diagnostic (Contour #100 ea 12/07/24 12/15/24 Rx Next Test Strips) lancets (Microlet Lancet) #100 ea 12/07/24 12/15/24 Rx pen needle, diabetic 32 gauge x #100 ea 12/07/24 12/15/24 Rx 5/32" (Pen Needle) rosuvastatin 20 mg tablet 20 mg PO QAM High cholesterol #30 12/07/24 02/14/25 Rx tabs blood-glucose sensor (Dexcom G7 #3 ea 01/11/25 01/11/25 Rx Sensor device) blood-glucose,proposal manager,cont #1 ea 01/11/25 01/11/25 Rx (Dexcom G7 Farm Supervisor) insulin glargine 100 unit/mL (3 34 unit subcut DAILY 01/11/25 02/14/25 History mL) subcutaneous pen (Lantus Solostar U-100 Insulin) metformin 500 mg tablet,extended 500 mg PO BID #60 tabs 01/11/25 02/14/25 Rx release 24 hr Past Med/Surg History Problem List (Updated 02/14/25 @ 23:56 by Tyrel Loco MD) Hyperglycemia due to diabetes mellitus Diabetic infection of left foot Hyperglycemia (Acute) Tobacco abuse Urinary urgency Intertrigo (Chronic) Necrobiosis lipoidica diabeticorum (Acute) Hidradenitis suppurativa (Acute) Lumbar back pain (Acute) Depression with anxiety (Chronic) Anxiety (Acute) Constipation (Acute) Diabetes mellitus type 2, uncontrolled (Chronic) Endometrial polyp (Acute) Essential hypertriglyceridemia (Acute) Hyperlipidemia (Chronic) Microalbuminuria (Acute) Morbid obesity (Chronic) Vitamin D deficiency (Acute) Medical History (Updated 02/14/25 @ 23:56 by Tyrel Loco MD) Acute cholecystitis Cholecystitis Cellulitis and abscess of upper arm Surgical History Hx laparoscopic cholecystectomy (12/01/24) History of D&C Family History Mother Diabetes Father Lung cancer Myocardial infarction Grandfather Myocardial infarction Aunt Breast cancer Ovarian cancer Uncle Alzheimer disease Denies family history of Prostate cancer Colorectal cancer Social History Smoking Status: Current every day smoker Tobacco Type: Cigarettes Age Started Using Tobacco: 0; packs per day: 0; Cigarettes Per Day: 1/2 pack per day; Second Hand Exposure: Yes; Do You Dip or Chew Tobacco: No; Hx Alcohol Use: No Hx Substance Use: No Preferred Language: Greenlandic Communication Ability: Effective Visual Impairment: No Limitations Hearing Ability: Normal Hot Oiler Required: No Beliefs That Will Affect Care: None Current Living Situation: Spouse and Family Current Living Situation Comment: lives at home with and daughter current occupational status: employed Feels Safe at Home: No Is there a partner from a previous relationship who is making you feel unsafe now?: No Assistive Devices: None Review of Systems Review of Systems: The patient denies chest pain, palpitations, shortness of breath, dyspnea on exertion, cough, sore throat, fevers, chills, sweats, weight change, fatigue, nausea, vomiting, diarrhea , constipation, abdominal pain, pelvic pain, blood in urine or stool, dysuria, urinary frequency or urgency, lightheadedness, dizziness, headache, memory loss, loss of consciousness, imbalance, focal or generalized weakness, numbness or tingling in arms or legs, generalized arthralgias or myalgias, back or neck pain, or night sweats. The review of systems is otherwise negative other than for that already noted above, and at least 10 systems have been reviewed. Physical Exam Physical Exam: The patient is awake, alert and oriented 3, well developed and well nourished, normocephalic and atraumatic, lying in bed and in no acute distress. HEENT--PERRL, EOMI, mucous membranes and oropharynx normal Neck--supple. No JVD. No bruits. Thyroid normal, trachea midline, no adenopathy . Heart--normal S1 and S2. No murmurs, rubs or gallops. Lungs--clear bilaterally, no respiratory distress, no accessory muscle use. Abdomen--normal bowel sounds and soft. Nontender. Nondistended, no hernias or masses, no organomegaly. Extremities/ Dermatologic--soft tissue swelling and erythema noted over lateral surface of the dorsum of the foot, with severe pain with light pressure Neurologic--cranial nerves II through XII grossly intact. Rheumatologic--normal range of motion. Psychiatric--normal affect. Results & Data Results & Data Vital Signs (Past 12 Hours) Vital Signs Temp Pulse Resp BP Pulse Ox O2 Del Method 02/14/25 18:10 36.9 C 101 H 16 137/86 98 Room Air Code Status & VTE Plan Code Status Full code VTE Prophylaxis Plan VTE Prophylaxis will be ordered: Yes PG Care Time/CCT Total # of Minutes Spent Total Time Spent with Patient: Total time spent is greater than 50% in coordination of care (as documented) at patient's floor/unit and/or counseling patient: Coding Level of Care Code 26814 INT INP/OBS CARE 3/75MIN Diagnoses Diabetic infection of left foot E11.628; L08.9 Hyperglycemia due to diabetes mellitus E11.65 Hyperlipidemia E78.5
[2025-02-14] MEDS: PIPERACILLIN/TAZOBACTAM 4.5 GM/100 ML BAG IV ONE (22:25)
--- NOTE | 2025-02-14 22:30 | Podiatry Consultation ---
Date of Consultation February 14, 2025 Assessment & Plan (1) Diabetes mellitus type 2, uncontrolled: (2) Diabetic infection of left foot: (3) Tobacco abuse: (4) Hyperlipidemia: (5) PVD (peripheral vascular disease): (6) Morbid obesity: Plan -All notes, labs and imaging reviewed - Vascular studies ordered, pending Infectious disease consulted, appreciate recommendations Cultures: Pending and will be taken IntraOp -Patient could not tolerate dressing to left foot today. If patient tolerates can proceed with alginate and DSD. - Reviewed CT scan of the left foot. Vascular studies ordered and pending. Will plan on incision and drainage of left foot after vascular studies. Continue with conservative management for now. History of Present Illness Reason for Consultation: Patient is a 44-year-old female that was consulted for a left diabetic foot wound and abscess. Patient states that this has been going on since Saturday and has progressively gotten worse. Patient states that redness pain edema and pain to palpation has increased significantly since Saturday. Patient states that there has also been an increase with drainage. This prompted patient to come to the emergency department for further evaluation. Patient was admitted for this reason and patient was consulted for management. No other pedal complaints today. Patient denies any constitutional symptoms. Allergies Allergy/AdvReac Type Severity Reaction Status Date / Time acetaminophen Allergy Intermediate Vomiting Verified 12/15/24 14:05 hydromorphone [From Dilaudid] AdvReac Severe "I forget Verified 12/15/24 14:05 to breath" levofloxacin [From Levaquin] AdvReac Mild dizziness Verified 12/15/24 14:05 and rash Quinolones AdvReac Mild rapid eye Verified 12/15/24 14:05 movements, dizziness Home Medications Medication Instructions Recorded Confirmed Type blood-glucose meter (OneTouch #1 ea 04/05/22 12/15/24 Rx Ultra2 Meter kit) blood sugar diagnostic (Contour #100 ea 12/07/24 12/15/24 Rx Next Test Strips) lancets (Microlet Lancet) #100 ea 12/07/24 12/15/24 Rx pen needle, diabetic 32 gauge x #100 ea 12/07/24 12/15/24 Rx 5/32" (Pen Needle) rosuvastatin 20 mg tablet 20 mg PO QAM High cholesterol #30 12/07/24 02/14/25 Rx tabs blood-glucose sensor (Dexcom G7 #3 ea 01/11/25 01/11/25 Rx Sensor device) blood-glucose,brand strategist,cont #1 ea 01/11/25 01/11/25 Rx (Dexcom G7 Fire Services Plumber) insulin glargine 100 unit/mL (3 34 unit subcut DAILY 01/11/25 02/14/25 History mL) subcutaneous pen (Lantus Solostar U-100 Insulin) metformin 500 mg tablet,extended 500 mg PO BID #60 tabs 01/11/25 02/14/25 Rx release 24 hr Patient History Medical History Acute cholecystitis Cholecystitis Cellulitis and abscess of upper arm Surgical History Hx laparoscopic cholecystectomy (12/01/24) Laparoscopic Cholecystectomy - Carlos Wilson DO History of D&C Family History Mother Diabetes Father Lung cancer Myocardial infarction Grandfather Myocardial infarction Aunt Breast cancer Ovarian cancer Uncle Alzheimer disease Denies family history of Prostate cancer Colorectal cancer Social History Smoking Status: Current every day smoker Tobacco Type: Cigarettes Age Started Using Tobacco: 0; packs per day: 0; Cigarettes Per Day: 10 cigarettes/half a pack a day; Second Hand Exposure: No; Do You Dip or Chew Tobacco: No; Hx Alcohol Use: No Hx Substance Use: No Preferred Language: Hebrew Communication Ability: Effective Visual Impairment: No Limitations Hearing Ability: Normal Customer Success Specialist Required: No Beliefs That Will Affect Care: None Current Living Situation: Spouse and Family Current Living Situation Comment: lives at home with and daughter current occupational status: employed Feels Safe at Home: Yes Assistive Devices: None Review of Systems Review of Systems: All systems reviewed & are unremarkable except as noted in HPI & below Physical Exam Musculoskeletal: Extremities: strength 5/5 throughout Skin: + wound, + skin atrophy, + dry skin, + e rythema and + fluctulance Edema and drainage noted to 4th webspace. Neurologic: Light touch and protective sensation diminished. Results & Data Vital Signs (Past 12 Hours) Vital Signs Temp Pulse Resp BP Pulse Ox O2 Del Method 02/14/25 18:10 36.9 C 101 H 16 137/86 98 Room Air
[2025-02-14] MEDS: VANCOMYCIN HCL 2,750 MG in SODIUM CHLORIDE 0.9% 500 ML IV ONE (23:06)
[2025-02-15] MEDS ORDERED: VANCOMYCIN CONSULT ACTIVE PRN (00:47)
[2025-02-15] MEDS ORDERED: CARBOHYDRATES FOR HYPOGLYCEMIA PO PRN ×2 (01:00→07:11)
[2025-02-15] MEDS ORDERED: DEXTROSE 50% 50 ML SYRINGE IV PRN ×2 (01:00→07:11)
[2025-02-15] MEDS ORDERED: GLUCOSE 10 TAB/TUBE PO PRN ×2 (01:00→07:11)
[2025-02-15] MEDS ORDERED: GLUCOSE 40% GEL 15 GM TUBE PO PRN ×2 (01:00→07:11)
[2025-02-15] MEDS ORDERED: GLUCAGON FOR INJ 1 MG VIAL SQ PRN ×2 (01:00→07:11)
[2025-02-15] MEDS: Patient's HEIGHT &/or WEIGHT Needed STA (02:11)
[2025-02-15] MEDS: PIPERACILLIN/TAZOBACTAM 4.5 GM/100 ML BAG IV SCH (04:33)
[2025-02-15 06:44] LABS: Hematocrit (blood only) 35.2 % (37.0-47.0); Hemoglobin 11.9 g/dl (12.0-16.0); Immature Granulocytes # (auto) 0.05 K/uL (0.01-0.20); Immature Granulocytes % (auto) 0.5 %; Mean Corpuscular Hemoglobin 27.1 pg (25.0-34.0); Mean Corpuscular Volume 80.2 fL (80.0-100.0); Platelet Count 175 K/uL (130-400); RDW Standard Deviation 41.8 fL (36.4-46.3); Red Blood Count 4.39 M/uL (4.20-5.40); White Blood Count 9.48 K/ul (4.8-10.8)
[2025-02-15 07:19] LABS: Alanine Aminotransferase 9.0 U/L (7-52); Albumin Globulin Ratio 1.2 (0.9-2); Alkaline Phosphatase 75.0 U/L (34-104); Anion Gap 3.0 (3-11); Bilirubin,Total 0.5 mg/dl (0.2-1.0); Blood Urea Nitrogen 8.0 mg/dl (6-23); Calcium 8.2 mg/dl (8.6-10.3); Carbon Dioxide 28.0 mmol/L (21-32); Chloride 105.0 mmol/L (98-107); Creatinine Clr Calc Pharmacy 119.9 ml/min; Globulin 2.6 gm/dl (2.5-4.0); Glucose 213.0 mg/dl (70-99(Fasting)); Magnesium 1.5 mg/dl (1.7-2.4); Potassium 3.9 mmol/L (3.5-5.1); Sodium 136.0 mmol/L (136-145); Total Protein 5.6 gm/dl (6.0-8.3)
--- NOTE | 2025-02-15 07:50 | Pharmacy Report ---
Pharmacy PK ABX Note - Date of Service February 15, 2025 - Assessment and Plan Assessment 44 year old F receiving vancomycin/Zosyn for treatment of left foot cellulitis/ulcer. Pertinent microbiologic data includes: foot culture pending Day # 1 of antimicrobial therapy. Plan Vancomycin * Loading dose: 2750 mg IV x 1 * Maintenance dose: 1250 mg IV every 12 hours * Regimen is predicted to achieve target AUC/ALMA of 400-600 mg/L.hr * Random level ordered for: 02/16/25 @0800 Pharmacy will continue to follow and will adjust dose/frequency as necessary. Thank you. Pharmacy has transitioned to AUC monitoring for vancomycin. AUC/ALMA is the preferred PK/PD target and is associated with decreased risk of nephrotoxicity compared to traditional trough targets.
[2025-02-15] MEDS: ROSUVASTATIN CALCIUM 20 MG TAB PO SCH (08:08)
[2025-02-15] MEDS: LANTUS PER UNIT CHARGE SQ SCH (09:37)
[2025-02-15] MEDS: INSULIN ASPART PER UNIT CHARGE SC SCH (09:37)
--- NOTE | 2025-02-15 10:10 | Hospitalist Progress Note ---
Date of Service February 15, 2025 Assessment & Plan (1) Diabetic infection of left foot: Plan: -on zosyn/vancomycin -podiatry consult appreciated -f/u MEGHAN -ID consulted -Percocet and morphine for pain control (2) Hyperglycemia due to diabetes mellitus: Plan: Continue glargine RISS (3) Hyperlipidemia: Plan: -con't crestor Plan The patient is a 44-year-old female with a past medical history including hyperglycemia associated with diabetes mellitus, tobacco abuse, necrobiosis lipoid diabeticorum, hidradenitis suppurativa, depression with anxiety, essential hypertriglyceridemia, morbid obesity, and vitamin D deficiency. She presents to the emergency department with worsening left foot pain, swelling and erythema. In the emergency department she underwent a CT scan of left foot, which showed extensive soft tissue edema throughout the lower leg, ankle and foot, which is most consistent with cellulitis and abscess. She has been referred for evaluation for admission. In emergency department she was started on vancomycin IV and Zosyn IV. Admission and Anticipated Discharge Date Admission Date: February 14, 2025 Subjective Pt complaining of pain in her left foot. Had MEGHAN this am. Review of Systems Review of Systems: CONST: Negative for fever, body aches and chills. HENT: Negative for neck pain/stiffness, headache, congestion, sore throat, swelling. EYES: Negative for discharge/pain or vision changes. RESP: Negative for cough/hemoptysis and shortness of breath. CV: Negative chest pain, difficulty breathing, palpitations. ABD: Negative pain, nausea, vomiting. : Negative increase frequency, dysuria, blood in urine or stool. MUSC: Negative for muscle aches, edema. SKIN: Negative rash, lesions/sores. NEURO: Negative headache, dizziness, weakness. Physical Exam Physical Exam: GENERAL APPEARANCE NAD, activity normal for age, well developed/ well nourished, no cyanosis, pallor, or diaphoresis. EYES lids/conjunctiva normal. EARS/NOSE/THROAT Mucous membranes moist, nares normal, lips/teeth normal uvula midline without oral pharyngeal erythema, exudate or swelling TMs normal bilaterally. No lymphangitis/lymphedema. HEAD/NECK normocephalic atraumatic, no facial trauma, neck is supple. RESPIRATORY respiratory effort normal, speaks in full sentences, no tripod position, no accessory muscle use. Lungs clear to auscultation without rhonchi, wheezes, rales CARDIAC Regular rate and rhythm, no edema. ABDOMINAL Soft, ND/NT. No evidence of fluid wave. No pulsatile masses on exam, rebound tenderness, Gonzalez sign or pain over Mcburney's point. MUSCLES/EXTREMITIES No abnormal range of motion, no swelling. SKIN Warm, pink and dry. No rashes, dermatoses, petechiae or lesions. Left foot erythema and edema NEUROLOGICAL Speech is clear and appropriate. Normal level of consciousness. Gait and coordination are normal. 5/5 strength in all extremities. PSYCH Normal mood and affect. Judgement/competence is appropriate Results & Data Results & Data Vital Signs (Past 12 Hours) Vital Signs Temp Pulse Pulse Resp BP Pulse Ox Pulse Ox 02/15/25 07:29 36.8 C 86 16 115/75 96 02/15/25 05:44 79 02/15/25 03:47 36.8 C 82 20 121/80 96 02/15/25 00:47 36.8 C 14 141/83 H 99 02/15/25 00:47 99 02/15/25 00:46 88 02/15/25 00:30 36.8 C 14 141/83 H 99 02/15/25 00:13 87 24 96 02/14/25 23:00 18 149/81 H 95 02/14/25 22:37 84 O2 Del Method O2 Del Method 02/15/25 07:29 Room Air 02/15/25 05:44 02/15/25 03:47 Room Air 02/15/25 00:47 Room Air 02/15/25 00:47 Room Air 02/15/25 00:46 02/15/25 00:30 Room Air 02/15/25 00:13 Room Air 02/14/25 23:00 Room Air 02/14/25 22:37 PG Care Time/CCT Total # of Minutes Spent Total Time Spent with Patient: Total time spent is greater than 50% in coordination of care (as documented) at patient's floor/unit and/or counseling patient: Coding Level of Care Code 93845 SUB INP/OBS CARE 2/35MIN Diagnoses Diabetic infection of left foot E11.628; L08.9 Hyperglycemia due to diabetes mellitus E11.65 Hyperlipidemia E78.5
--- NOTE | 2025-02-15 10:47 | Ultrasound Report ---
ULTRASOUND ANKLE BRACHIAL INDICES CLINICAL HISTORY: Peripheral vascular disease. COMPARISON STUDY: No priors. FINDINGS: Ankle brachial indices were assessed on ultrasound. Left brachial pressure measures 115. Ri ght brachial pressure could not be assessed due to the presence of an IV catheter. Pressures in the r ight posterior tibial artery measure 156 for an MEGHAN of 1.36 and pressures in the right dorsalis pedis measure 158 for an MEGHAN of 1.37. Pressures in the left posterior tibial artery measure 163 for an MEGHAN of 1.42 and pressures in the left dorsalis pedis artery measure 166 for an MEGHAN of 1.44. IMPRESSION: Ankle-brachial indices as above. Dictated: 02/15/2025 9:00 AM Transcribed: 02/15/2025 9:58 AM Eduard [id number] BRIANNE_Terrell Electronically signed by: Fernando Mcgraw M.D. 02/15/2025 10:46 AM
[2025-02-15] MEDS: VANCOMYCIN HCL 1,250 MG in SODIUM CHLORIDE 0.9% 250 ML IV SCH (11:37)
--- NOTE | 2025-02-15 12:50 | Infectious Disease Consult ---
Date of Consultation February 15, 2025 Assessment & Plan (1) Cellulitis of left foot: (2) Hyperglycemia due to diabetes mellitus: Plan Problems: #L foot cellulitis #T2DM Micro: 02/14 Wound cx: GBS Abx: Vanc 02/14 - present Zosyn 02/14 - present 44 yo F with diabetes, tobacco use, necrobiosis lipoidica diabeticorum, hidradenitis suppurativa, morbid obesity who presented on 02/14 with worsening L foot pain, swelling, and erythema. On presentation, pt was afebrile, VSS. Labs showed WBC 9.8. CT foot with contrast showed extensive soft tissue edema throughout the lower leg, ankle, foot, most pronounced along lateral lower leg and ankle and dorsal foot. No well-developed drainable fluid collection or abscess is seen. No acute osseous abnormality. She was started on vanc and Zosyn. Podiatry was consulted and plans to take pt to OR for I&D. ABIs were normal. Wound culture is growing GBS. Recommendations: - Please send cultures from the OR - Will follow-up operative findings - Can continue vanc, Zosyn for now Will continue to follow. Consultation Information This patient recommendation is based on a telemedicine consult request which was completed asynchronously through chart review and information provided by the primary physician. The patient was not seen or examined today. The evaluation is consultative in nature and all patient care and treatment decisions can either be accepted or rejected by the patient's primary hospital-based treating physician using their own independent medical judgment for their patient. Web Art Director contact information: Please call [facility] [phone]. (Phone Number For Physician Use Only) An e-consult was performed as the video cart is not functioning. Time Spent Reviewing Chart: 31+ minutes History of Present Illness Reason for Consultation: DFI Attending Physician: Abdiel Castillo MD History of Present Illness 44 yo F with diabetes, tobacco use, necrobiosis lipoidica diabeticorum, hidradenitis suppurativa, morbid obesity who presented on 02/14 with worsening L foot pain, swelling, and erythema. On presentation, pt was afebrile, VSS. Labs showed WBC 9.8. CT foot with contrast showed extensive soft tissue edema throughout the lower leg, ankle, foot, most pronounced along lateral lower leg and ankle and dorsal foot. No well-developed drainable fluid collection or abscess is seen. No acute osseous abnormality. She was started on vanc and Zosyn. Podiatry was consulted and plans to take pt to OR for I&D. ABIs were normal. Wound culture is growing GBS. Allergies Allergy/AdvReac Type Severity Reaction Status Date / Time acetaminophen Allergy Intermediate Vomiting Verified 12/15/24 14:05 hydromorphone [From Dilaudid] AdvReac Severe "I forget Verified 12/15/24 14:05 to breath" levofloxacin [From Levaquin] AdvReac Mild dizziness Verified 12/15/24 14:05 and rash Quinolones AdvReac Mild rapid eye Verified 12/15/24 14:05 movements, dizziness Home Medications Medication Instructions Recorded Confirmed Type blood-glucose meter (OneTouch #1 ea 04/05/22 12/15/24 Rx Ultra2 Meter kit) blood sugar diagnostic (Contour #100 ea 12/07/24 12/15/24 Rx Next Test Strips) lancets (Microlet Lancet) #100 ea 12/07/24 12/15/24 Rx pen needle, diabetic 32 gauge x #100 ea 12/07/24 12/15/24 Rx 5/32" (Pen Needle) rosuvastatin 20 mg tablet 20 mg PO QAM High cholesterol #30 12/07/24 02/14/25 Rx tabs blood-glucose sensor (Dexcom G7 #3 ea 01/11/25 01/11/25 Rx Sensor device) blood-glucose,iron carrier,cont #1 ea 01/11/25 01/11/25 Rx (Dexcom G7 Teamsite Developer) insulin glargine 100 unit/mL (3 34 unit subcut DAILY 01/11/25 02/14/25 History mL) subcutaneous pen (Lantus Solostar U-100 Insulin) metformin 500 mg tablet,extended 500 mg PO BID #60 tabs 01/11/25 02/14/25 Rx release 24 hr Patient History Medical History (Updated 02/15/25 @ 16:13 by Carmen Cohen MD) Encounter for pre-operative examination Morbid obesity Diabetes mellitus type 2, uncontrolled Tobacco abuse Diabetic infection of left foot PVD (peripheral vascular disease) Acute cholecystitis Cholecystitis Cellulitis and abscess of upper arm Surgical History Hx laparoscopic cholecystectomy (12/01/24) Laparoscopic Cholecystectomy - Carlos Wilson DO History of D&C Family History Mother Diabetes Father Lung cancer Myocardial infarction Grandfather Myocardial infarction Aunt Breast cancer Ovarian cancer Uncle Alzheimer disease Denies family history of Prostate cancer Colorectal cancer Social History Smoking Status: Current every day smoker Tobacco Type: Cigarettes Age Started Using Tobacco: 0; packs per day: 0; Cigarettes Per Day: 10 cigarettes/half a pack a day; Second Hand Exposure: No; Do You Dip or Chew Tobacco: No; Hx Alcohol Use: No Hx Substance Use: No Preferred Language: Burmese Communication Ability: Effective Visual Impairment: No Limitations Hearing Ability: Normal Chief Ultrasound Technologist Required: No Beliefs That Will Affect Care: None Current Living Situation: Spouse and Family Current Living Situation Comment: lives at home with and daughter current occupational status: employed Feels Safe at Home: Yes Assistive Devices: None Results & Data Vital Signs (Past 12 Hours) Vital Signs Temp Pulse Pulse Resp BP Pulse Ox O2 Del Method 02/15/25 12:13 37.2 C 80 16 116/76 95 Room Air 02/15/25 07:29 36.8 C 86 16 115/75 96 Room Air 02/15/25 05:44 79 02/15/25 03:47 36.8 C 82 20 121/80 96 Room Air Laboratory Results Short CBC 02/14/25 02/15/25 Range/Units 18:29 06:27 WBC 9.82 9.48 (4.8-10.8) K/ul Hgb 13.9 11.9 L (12.0-16.0) g/dl Hct 42.3 35.2 L (37.0-47.0) % Plt Count 210 175 (130-400) K/uL BMP 02/14/25 02/15/25 18:29 06:27 Sodium 136 136 Potassium 4.0 3.9 Chloride 101 105 Carbon Dioxide 29 28 BUN 11 8 Creatinine 0.82 0.70 Glucose 302 H* 213 H Calcium 9.4 8.2 L Liver Function 02/14/25 02/15/25 Range/Units 18:29 06:27 Total Bilirubin 0.6 0.5 (0.2-1.0) mg/dl AST 13 11 L (13-39) U/L ALT 13 9 (7-52) U/L Alkaline Phosphatase 101 75 (34-104) U/L Albumin 3.8 3.0 L (3.4-5.0) gm/dl Medications Administered Current Inpatient Medications Atropine Sulfate (Atropine Sulfate 0.1 Mg/Ml 10ml Syr) 0.5 mg IV Q1M PRN PRN Reason: PACU Use-HR<40 &/or Bradycardi Stop: 02/15/25 23:58 Dextrose (Dextrose 50% 50 Ml Syringe) 25 - 50 ml IV UD PRN; Protocol PRN Reason: Hypoglycemia Protocol Stop: 03/17/25 00:59 Ephedrine Sulfate (Ephedrine Sulfate 50 Mg/Ml Amp) 5 mg IV Q5M PRN PRN Reason: PACU Use Only-SBP<90 mmHg Stop: 02/15/25 23:58 Fentanyl Citrate (Fentanyl Citrate Pf 100 Mcg/2 Ml Vial) 25 mcg IV Q5M PRN PRN Reason: PACU Use Only-Pain Stop: 02/15/25 23:59 Glucagon (Glucagon For Inj 1 Mg Vial) 1 mg SQ UD PRN; Protocol PRN Reason: Hypoglycemia Protocol Stop: 03/17/25 00:59 Glucose (Glucose 40% Gel 15 Gm Tube) 15 - 30 gm PO UD PRN; Protocol PRN Reason: Hypoglycemia Protocol Stop: 03/17/25 00:59 Glucose (Glucose 10 Tab/Tube) 4 - 8 tab PO UD PRN; Protocol PRN Reason: Hypoglycemia Protocol Stop: 03/17/25 00:59 Vancomycin HCl 1,250 mg/ (Sodium Chloride) 275 mls @ 200 mls/hr IV Q12H [facility] Stop: 02/22/25 11:59 Last Infusion: 02/15/25 13:01 Dose: Infused Piperacillin Sod/Tazobactam Sod (Zosyn) 4.5 gm in 100 mls @ 25 mls/hr IV Q8H GERMAN; Protocol Stop: 02/22/25 03:59 Last Admin: 02/15/25 12:52 Dose: 25 mls/hr Insulin Aspart (Insulin Aspart Per Unit Charge) 0 units SC ACHS GERMAN Stop: 03/17/25 07:29 Last Admin: 02/15/25 12:58 Dose: 2 units Insulin Glargine (Lantus Per Unit Charge) 34 units SQ DAILY [facility] Stop: 03/17/25 08:59 Last Admin: 02/15/25 09:37 Dose: 34 units Miscellaneous (Carbohydrates For Hypoglycemia ) 15 - 30 gm PO UD PRN PRN Reason: Hypoglycemia Treatment Stop: 03/17/25 00:59 Miscellaneous Information (Vancomycin Consult Active) 1 each N/A UD PRN PRN Reason: Consult Stop: 03/17/25 00:46 Morphine Sulfate (Morphine Sulfate 4 Mg/Ml 1 Ml Carp\\Vial) 4 mg IV Q4H PRN PRN Reason: Severe Pain (Scale 7, 8, 9,10) Stop: 03/01/25 09:59 Ondansetron HCl (Ondansetron Inj 2 Mg/Ml 2 Ml Vial) 4 mg IV Q6H PRN PRN Reason: NAUSEA/VOMITING Stop: 03/17/25 00:46 Ondansetron HCl (Ondansetron Inj 2 Mg/Ml 2 Ml Vial) 4 mg IV ONCE PRN PRN Reason: PACU Use Only-Nausea/Vomiting Stop: 02/16/25 00:01 Oxycodone/Acetaminophen (Oxycodone/Acetaminophen 5mg/325mg Tab) 1 tab PO Q4H PRN PRN Reason: Pain Stop: 03/01/25 09:35 Last Admin: 02/15/25 09:58 Dose: 1 tab Rosuvastatin Calcium (Rosuvastatin Calcium 20 Mg Tab) 20 mg PO QAM [facility] Stop: 03/17/25 08:59 Last Admin: 02/15/25 08:08 Dose: 20 mg
[2025-02-15] MEDS ORDERED: ONDANSETRON INJ 2 MG/ML 2 ML VIAL ONE (15:45)
[2025-02-15] MEDS ORDERED: LIDOCAINE 2% 2 ML VIAL/AMP(20MG/ML) INFIL ONE (15:45)
[2025-02-15] MEDS ORDERED: PROPOFOL IV EMULSION 10 MG/ML 20 ML VIAL IV ONE ×2 (15:45)
[2025-02-15] MEDS ORDERED: ATROPINE SULFATE 0.1 MG/ML 10ML SYR IV PRN (15:58)
[2025-02-15] MEDS ORDERED: ONDANSETRON INJ 2 MG/ML 2 ML VIAL IV PRN (15:58)
--- NOTE | 2025-02-15 15:58 | Anesthesiology Consultation ---
Date of Service February 15, 2025 Assessment & Plan (1) Encounter for pre-operative examination: Chart Review Chart Review: Acceptable Risk for Surgery and Patient NOT seen in Pre Admission Testing Consults Requested none History Surgery Operation Date: 02/15/25 10:30 Proposed Procedures p Left Foot Incision and Drainage - Renee Yost DPM Height/Weight Height: 5 ft 1 in Weight: 113.5 kg Allergies Allergy/AdvReac Type Severity Reaction Status Date / Time acetaminophen Allergy Intermediate Vomiting Verified 12/15/24 14:05 hydromorphone [From Dilaudid] AdvReac Severe "I forget Verified 12/15/24 14:05 to breath" levofloxacin [From Levaquin] AdvReac Mild dizziness Verified 12/15/24 14:05 and rash Quinolones AdvReac Mild rapid eye Verified 12/15/24 14:05 movements, dizziness Medications Home Medications Medication Instructions Recorded Confirmed Last Taken blood-glucose meter (OneTouch #1 ea 04/05/22 12/15/24 Unknown Ultra2 Meter kit) blood sugar diagnostic (Contour #100 ea 12/07/24 12/15/24 Unknown Next Test Strips) lancets (Microlet Lancet) #100 ea 12/07/24 12/15/24 Unknown pen needle, diabetic 32 gauge x #100 ea 12/07/24 12/15/24 Unknown 5/32" (Pen Needle) rosuvastatin 20 mg tablet 20 mg PO QAM High cholesterol #30 12/07/24 02/14/25 02/14/25 tabs blood-glucose sensor (Dexcom G7 #3 ea 01/11/25 01/11/25 Unknown Sensor device) blood-glucose,epic trainer,cont #1 ea 01/11/25 01/11/25 Unknown (Dexcom G7 Certified Retinal Angiographer) insulin glargine 100 unit/mL (3 34 unit subcut DAILY 01/11/25 02/14/25 02/14/25 mL) subcutaneous pen (Lantus Solostar U-100 Insulin) metformin 500 mg tablet,extended 500 mg PO BID #60 tabs 01/11/25 02/14/25 02/14/25 release 24 hr Active Medications Generic Name Dose Route Start Last Admin Trade Name Freq PRN Reason Stop Dose Admin Vancomycin HCl 1,250 mg/ 275 mls @ 200 mls/hr 02/15/25 12:00 02/15/25 13:01 Sodium Chloride IV 02/22/25 11:59 Infused Q12H GERMAN Infusion Piperacillin Sod/Tazobactam Sod 4.5 gm in 100 mls @ 25 mls/hr 02/15/25 04:00 02/15/25 12:52 Zosyn IV 02/22/25 03:59 25 mls/hr Q8H GERMAN Administration Protocol Insulin Aspart 0 units 02/15/25 07:30 02/15/25 12:58 Insulin Aspart Per Unit Charge SC 03/17/25 07:29 2 units ACHS GERMAN Administration Insulin Glargine 34 units 02/15/25 09:00 02/15/25 09:37 Lantus Per Unit Charge SQ 03/17/25 08:59 34 units DAILY GERMAN Administration Oxycodone/Acetaminophen 1 tab 02/15/25 09:36 02/15/25 09:58 Oxycodone/Acetaminophen 5mg/325mg Tab PO 03/01/25 09:35 1 tab Q4H PRN Administration Pain Rosuvastatin Calcium 20 mg 02/15/25 09:00 02/15/25 08:08 Rosuvastatin Calcium 20 Mg Tab PO 03/17/25 08:59 20 mg QAM GERMAN Administration Past Medical History Medical History (Updated 02/15/25 @ 15:58 by Vitaliy Weeks MD) Encounter for pre-operative examination Morbid obesity Diabetes mellitus type 2, uncontrolled Tobacco abuse Diabetic infection of left foot PVD (peripheral vascular disease) Acute cholecystitis Cholecystitis Cellulitis and abscess of upper arm Past Family History Family History Mother Diabetes Father Lung cancer Myocardial infarction Grandfather Myocardial infarction Aunt Breast cancer Ovarian cancer Uncle Alzheimer disease Denies family history of Prostate cancer Colorectal cancer Past Surgical History Surgical History Hx laparoscopic cholecystectomy (12/01/24) Laparoscopic Cholecystectomy - Carlos Wilson DO History of D&C Lap Lily 12/01/24 at [facility]. [facility]. No reported issues. Social History Smoking Status: Current every day smoker Smoking cigarettes per day: 10 cigarettes/half a pack a day Do You Dip or Chew Tobacco: No Hx Alcohol Use: No Hx Substance Use: No substance use type: does not use Physical Exam Vital Signs Last Vital Signs Temp 37.2 C 02/15/25 12:13 Pulse 74 02/15/25 13:44 Resp 16 02/15/25 12:13 BP 116/76 02/15/25 12:13 Pulse Ox 95 02/15/25 12:13 O2 Del Method Room Air 02/15/25 12:13 Testing Laboratory Results 02/15/25 06:27 02/15/25 06:27 02/14/25 21:32 Gram Stain - Final Foot Aerobic and Anaerobic Culture - Preliminary Strep agalactiae (group B) 02/15/25 02/15/25 12:47 07:49 POC Glucose 183 H 222 H Electrocardiogram Date: 12/01/24 DICTATED BY: Bharat Red MD Test Reason : Blood Pressure : */* mmHG Vent. Rate : 78 BPM Atrial Rate : 78 BPM P-R Int : 132 ms QRS Dur : 84 ms QT Int : 410 ms P-R-T Axes : 52 27 63 degrees QTcB Int : 467 ms Normal sinus rhythm Cannot rule out Anterior infarct , age undetermined Abnormal ECG When compared with ECG of 18-May-2013 10:08, No significant change Reconfirmed by Bharat Red ([id number]) on 12/01/2024 10:42:15 PM
[2025-02-15] MEDS ORDERED: MIDAZOLAM HCL 1 MG/ML 2ML VIAL ONE (16:41)
[2025-02-15] MEDS: BUPIVACAINE 0.5 % 5 MG/1 ML MPF 30ML VIAL ONE (17:00)
--- NOTE | 2025-02-15 17:24 | Post Operative Brief Note ---
Immediate Post Op Note Date of Surgery February 15, 2025 Pre & Post Diagnosis Operation Date: 02/15/25 10:30 Pre-Op Diagnosis: Diabetic infection of left foot Abscess of left foot Post-Op Diagnosis: Diabetic infection of left foot Abscess of left foot I identified the patient and participated in the time-out.: Yes Procedure Operation Date: 02/15/25 10:30 Actual Procedures p Left Foot Incision and Drainage - Renee Yost DPM Surgeon Renee Yost DPM Chicken Vaccinator n/a Estimated Blood Loss 10 Findings Consistent with Post-Op Diagnosis 3 ccs of purulent drainage
--- NOTE | 2025-02-15 17:36 | Anesthesiology Progress Note ---
Date of Service February 15, 2025 Anesthesia Post Procedure Vital Signs Vital Signs: Temp Pulse Pulse Pulse Resp BP BP 02/15/25 17:22 37.0 C 77 13 136/81 02/15/25 17:00 74 14 128/82 02/15/25 16:20 36.7 C 81 20 131/72 02/15/25 16:03 36.6 C 81 20 112/75 02/15/25 13:44 74 02/15/25 12:13 37.2 C 80 16 116/76 02/15/25 07:29 36.8 C 86 16 115/75 02/15/25 05:44 79 02/15/25 03:47 36.8 C 82 20 121/80 02/15/25 00:47 36.8 C 14 141/83 H 02/15/25 00:47 02/15/25 00:46 88 02/15/25 00:30 36.8 C 14 141/83 H 02/15/25 00:13 87 24 02/14/25 23:00 18 149/81 H 02/14/25 22:37 84 02/14/25 18:10 36.9 C 101 H 16 137/86 Pulse Ox Pulse Ox O2 Del Method O2 Del Method O2 Flow Rate 02/15/25 17:22 100 Oxymask 4 02/15/25 17:00 100 Oxymask 4 02/15/25 16:20 98 Room Air 02/15/25 16:03 81 L Room Air 02/15/25 13:44 02/15/25 12:13 95 Room Air 02/15/25 07:29 96 Room Air 02/15/25 05:44 02/15/25 03:47 96 Room Air 02/15/25 00:47 99 Room Air 02/15/25 00:47 99 Room Air 02/15/25 00:46 02/15/25 00:30 99 Room Air 02/15/25 00:13 96 Room Air 02/14/25 23:00 95 Room Air 02/14/25 22:37 02/14/25 18:10 98 Room Air Pain Intensity Left Foot: Pain Intensity: 7 Transfer of Care Handoff Completed per policy Notes Mental Status: alert / awake / arousable and participated in evaluation Patient Amnestic to Procedure: Yes Nausea / Vomiting: adequately controlled Pain: adequately controlled Airway Patency, RR, SpO2: stable & adequate BP & HR: stable & adequate Hydration State: stable & adequate Anesthetic Complications: no major complications apparent and Pt Satisfied with anesthetic care
--- NOTE | 2025-02-15 17:40 | Operative Report ---
Post Operative Report Pre & Post Diagnosis Operation Date: 02/15/25 10:30 Pre-Op Diagnosis: Diabetic infection of left foot Left foot Abscess Post-Op Diagnosis: Diabetic infection of left foot Left foot abscess I identified the patient and participated in the time-out.: Yes Procedure Operation Date: 02/15/25 10:30 Actual Procedures p Left Foot Incision and Drainage - Renee Yost DPM Surgeon Renee Yost DPM Sewer Maintenance Supervisor n/a Estimated Blood Loss 10 Findings Consistent with Post-Op Diagnosis 3 cc of purulent drainage Specimens Left foot anaerobic aerobic culture Left foot tissue culture Indications Diabetic foot infection purulent drainage and abscess Description of Procedure Left Foot incision and Drainage -Following satisfactory preop evaluation the patient was brought into the OR table and placed on the OR table in the supine position. MAC sedation was administered by anesthesia. Following sedation 10 cc of 0.5% Marcaine plain was then injected into the left foot. The foot was then prepped and draped in the usual sterile manner and lowered onto the surgical field. Attention was then directed to the left fourth webspace where there was noted to be drainage erythema and edema and fluctuance. Using a 10 blade an incision was made through the skin to the level of tissue and muscle. There is noted to be approximately 3 cc of purulent drainage from the lymph space. Healthy bleeding tissue was noted. Anaerobic and aerobic tissue cultures were taken from the fourthwebspace. Tissue culture was also taken from the left foot. All nonviable tissue was then debrided and excised using a #10 blade. The incision was then irrigated with copious amounts of sterile saline. The skin edges were then reapproximated 3-0 nylon was used as retention. A 1 cm hole was left open to allow for excess drainage. The incision was then packed with quarter inch plain packing tape. A dressing was then applied consisting of Xeroform, 4 x 4's, Kerlix and Sky wrap. The patient tolerated anesthesia procedure well was transported to the recovery. I attest to the content of the Intraoperative Record and any orders documented therein. Any exceptions are noted below.
[2025-02-15] MEDS: MoRPHine SULFATE 4 MG/ML 1 ML CARP\\VIAL IV PRN (18:28)
[2025-02-16 08:12] LABS: Hematocrit (blood only) 35.8 % (37.0-47.0); Hemoglobin 11.8 g/dl (12.0-16.0); Immature Granulocytes # (auto) 0.05 K/uL (0.01-0.20); Immature Granulocytes % (auto) 0.6 %; Mean Corpuscular Hemoglobin 26.8 pg (25.0-34.0); Mean Corpuscular Volume 81.4 fL (80.0-100.0); Platelet Count 159 K/uL (130-400); RDW Standard Deviation 41.3 fL (36.4-46.3); Red Blood Count 4.40 M/uL (4.20-5.40); White Blood Count 8.25 K/ul (4.8-10.8)
[2025-02-16 08:26] LABS: Alanine Aminotransferase 58.0 U/L (7-52); Albumin Globulin Ratio 1.2 (0.9-2); Alkaline Phosphatase 132.0 U/L (34-104); Anion Gap 4.0 (3-11); Bilirubin,Total 0.8 mg/dl (0.2-1.0); Blood Urea Nitrogen 8.0 mg/dl (6-23); Calcium 8.1 mg/dl (8.6-10.3); Carbon Dioxide 29.0 mmol/L (21-32); Chloride 104.0 mmol/L (98-107); Creatinine Clr Calc Pharmacy 98.3 ml/min; Globulin 2.6 gm/dl (2.5-4.0); Glucose 214.0 mg/dl (70-99(Fasting)); Magnesium 1.6 mg/dl (1.7-2.4); Potassium 4.0 mmol/L (3.5-5.1); Sodium 137.0 mmol/L (136-145); Total Protein 5.6 gm/dl (6.0-8.3)
--- NOTE | 2025-02-16 08:35 | Pharmacy Report ---
Pharmacy PK ABX Note - Date of Service February 16, 2025 - Assessment and Plan Assessment 02/16: Reviewed vancomycin level, predicting therapeutic AUC/ALMA, continue current vancomycin regimen. Surface foot culture growing strep agalactiae (Group B), s/p left foot abscess yesterday- purulent drainage noted. ID consulted, continue vancomycin/Zosyn at this time pending OR cultures. 02/15: 44 year old F receiving vancomycin/Zosyn for treatment of left foot cellulitis/ulcer. Pertinent microbiologic data includes: foot culture pending Day # 2 of antimicrobial therapy. Plan Vancomycin Vancomycin * Current regimen: 1250 mg IV every 12 hours * Random level obtained 02/16/25 resulted as 11.6 mcg/mL. This is predicted to achieve target AUC/ALMA of 400-600 mg/L.hr * Predicted AUC at steady state: 438 mg/L.hr * Continue to 1250 mg IV every 12 hours * Will repeat level in the next 48-72 hours if therapy is continued and/or change in patient clinical status Pharmacy will continue to follow and will adjust dose/frequency as necessary. Thank you. Pharmacy has transitioned to AUC monitoring for vancomycin. AUC/ALMA is the preferred PK/PD target and is associated with decreased risk of nephrotoxicity compared to traditional trough targets.
--- NOTE | 2025-02-16 08:59 | Infectious Disease Progress Nt ---
Date of Service February 16, 2025 Assessment & Plan (1) Cellulitis of left foot: (2) Hyperglycemia due to diabetes mellitus: Plan Problems: #L foot cellulitis/abscess s/p I&D (02/15/25) #T2DM Micro: 02/15 OR L foot tissue cx: pending. GS no org 02/15 OR L foot abscess cx: pending. no org 02/14 Wound cx: GBS Abx: Vanc 02/14 - present Zosyn 02/14 - present 44 yo F with diabetes, tobacco use, necrobiosis lipoidica diabeticorum, hidradenitis suppurativa, morbid obesity who presented on 02/14 with worsening L foot pain, swelling, and erythema. On presentation, pt was afebrile, VSS. Labs showed WBC 9.8. CT foot with contrast showed extensive soft tissue edema throughout the lower leg, ankle, foot, most pronounced along lateral lower leg and ankle and dorsal foot. No well-developed drainable fluid collection or a bscess is seen. No acute osseous abnormality. She was started on vanc and Zosyn. Superficial wound culture is growing GBS. ABIs were normal. Podiatry was consulted and took pt to OR for I&D on 02/15. Per operative note, L fourth webspace with drainage, erythema, edema, fluctuance, with ~3 cc purulent drainage. Nonviable tissue debrided and excised. OR cultures pending. Recommendations: - Follow-up OR cultures - Can continue vanc, Zosyn for now. If nothing additional grows from the OR cultures besides GBS, anticipate narrowing antibiotics Will continue to follow. Admission and Anticipated Discharge Date Admission Date: February 14, 2025 Subjective This patient recommendation is based on a telemedicine consult request which was completed asynchronously through chart review and information provided by the primary physician. The patient was not seen or examined today. The evaluation is consultative in nature and all patient care and treatment decisions can either be accepted or rejected by the patient's primary hospital-based treating camelia velasco using their own independent medical judgment for their patient. An e-consult was performed as the video cart is not functioning. Time Spent Reviewing Chart: 11 - 20 minutes Taken to OR yesterday for I&D Afebrile without leukocytosis Results & Data Vital Signs (Past 12 Hours) Vital Signs Temp Pulse Pulse Resp BP Pulse Ox O2 Del Method 02/16/25 07:59 36.9 C 78 16 113/66 94 Room Air 02/16/25 05:45 80 02/16/25 03:08 36.8 C 78 20 100/65 92 Room Air 02/15/25 23:35 36.7 C 77 20 109/71 90 Room Air 02/15/25 22:03 82 Laboratory Results Short CBC 02/16/25 Range/Units 07:53 WBC 8.25 (4.8-10.8) K/ul Hgb 11.8 L (12.0-16.0) g/dl Hct 35.8 L (37.0-47.0) % Plt Count 159 (130-400) K/uL BMP 02/16/25 07:53 Sodium 137 Potassium 4.0 Chloride 104 Carbon Dioxide 29 BUN 8 Creatinine 0.85 Glucose 214 H Calcium 8.1 L Liver Function 02/16/25 Range/Units 07:53 Total Bilirubin 0.8 (0.2-1.0) mg/dl AST 101 H (13-39) U/L ALT 58 H (7-52) U/L Alkaline Phosphatase 132 H (34-104) U/L Albumin 3.0 L (3.4-5.0) gm/dl Medications Administered Current Inpatient Medications Dextrose (Dextrose 50% 50 Ml Syringe) 25 - 50 ml IV UD PRN; Protocol PRN Reason: Hypoglycemia Protocol Stop: 03/17/25 00:59 Glucagon (Glucagon For Inj 1 Mg Vial) 1 mg SQ UD PRN; Protocol PRN Reason: Hypoglycemia Protocol Stop: 03/17/25 00:59 Glucose (Glucose 40% Gel 15 Gm Tube) 15 - 30 gm PO UD PRN; Protocol PRN Reason: Hypoglycemia Protocol Stop: 03/17/25 00:59 Glucose (Glucose 10 Tab/Tube) 4 - 8 tab PO UD PRN; Protocol PRN Reason: Hypoglycemia Protocol Stop: 03/17/25 00:59 Vancomycin HCl 1,250 mg/ (Sodium Chloride) 275 mls @ 200 mls/hr IV Q12H [facility] Stop: 02/22/25 11:59 Last Infusion: 02/16/25 01:24 Dose: Infused Piperacillin Sod/Tazobactam Sod (Zosyn) 4.5 gm in 100 mls @ 25 mls/hr IV Q8H [facility]; Protocol Stop: 02/22/25 03:59 Last Admin: 02/16/25 04:48 Dose: 25 mls/hr Insulin Aspart (Insulin Aspart Per Unit Charge) 0 units SC ACHS [facility] Stop: 03/17/25 07:29 Last Admin: 02/15/25 20:41 Dose: Not Given Insulin Glargine (Lantus Per Unit Charge) 34 units SQ DAILY [facility] Stop: 03/17/25 08:59 Last Admin: 02/16/25 08:52 Dose: 34 units Metformin HCl (Metformin Hcl Er 500 Mg Tabcr) 500 mg PO BID [facility] Stop: 03/17/25 20:59 Last Admin: 02/16/25 08:26 Dose: 500 mg Miscellaneous (Carbohydrates For Hypoglycemia ) 15 - 30 gm PO UD PRN PRN Reason: Hypoglycemia Treatment Stop: 03/17/25 00:59 Miscellaneous Information (Vancomycin Consult Active) 1 each N/A UD PRN PRN Reason: Consult Stop: 03/17/25 00:46 Morphine Sulfate (Morphine Sulfate 4 Mg/Ml 1 Ml Carp\Vial) 4 mg IV Q4H PRN PRN Reason: Severe Pain (Scale 7, 8, 9,10) Stop: 03/01/25 09:59 Last Admin: 02/16/25 08:51 Dose: 4 mg Ondansetron HCl (Ondansetron Inj 2 Mg/Ml 2 Ml Vial) 4 mg IV Q6H PRN PRN Reason: NAUSEA/VOMITING Stop: 03/17/25 00:46 Oxycodone/Acetaminophen (Oxycodone/Acetaminophen 5mg/325mg Tab) 1 tab PO Q4H P RN PRN Reason: Pain Stop: 03/01/25 09:35 Last Admin: 02/15/25 09:58 Dose: 1 tab Rosuvastatin Calcium (Rosuvastatin Calcium 20 Mg Tab) 20 mg PO QAM [facility] Stop: 03/17/25 08:59 Last Admin: 02/16/25 08:26 Dose: 20 mg
--- NOTE | 2025-02-16 09:26 | Hospitalist Progress Note ---
Date of Service February 16, 2025 Assessment & Plan (1) Diabetic infection of left foot: Plan: -on zosyn/vancomycin -podiatry consult appreciated -f/u MEGHAN -ID consulted -Percocet and morphine for pain control -s/p I&D -awaiting cultures -con't dressing changes as per podiatry (2) Hyperglycemia due to diabetes mellitus: Plan: Continue glargine RISS (3) Hyperlipidemia: Plan: -con't crestor Plan The patient is a 44-year-old female with a past medical history including hyperglycemia associated with diabetes mellitus, tobacco abuse, necrobiosis lipoid diabeticorum, hidradenitis suppurativa, depression with anxiety, essential hypertriglyceridemia, morbid obesity, and vitamin D deficiency. She presents to the emergency department with worsening left foot pain, swelling and erythema. In the emergency department she underwent a CT scan of left foot, which showed extensive soft tissue edema throughout the lower leg, ankle and foot, which is most consistent with cellulitis and abscess. She has been referred for evaluation for admission. In emergency department she was started on vancomycin IV and Zosyn IV. Admission and Anticipated Discharge Date Admission Date: February 14, 2025 Subjective No events overnight. Pt still complaining of pain in he foot. Review of Systems Review of Systems: CONST: Negative for fever, body aches and chills. HENT: Negative for neck pain/stiffness, headache, congestion, sore throat, swelling. EYES: Negative for discharge/pain or vision changes. RESP: Negative for cough/hemoptysis and shortness of breath. CV: Negative chest pain, difficulty breathing, palpitations. ABD: Negative pain, nausea, vomiting. : Negative increase frequency, dysuria, blood in urine or stool. MUSC: Negative for muscle aches, edema. SKIN: Negative rash, lesions/sores. NEURO: Negative headache, dizziness, weakness. Physical Exam Physical Exam: GENERAL APPEARANCE NAD, activity normal for age, well developed/ well nourished, no cyanosis, pallor, or diaphoresis. EYES lids/conjunctiva normal. EARS/NOSE/THROAT Mucous membranes moist, nares normal, lips/teeth normal uvula midline without oral pharyngeal erythema, exudate or swelling TMs normal bilaterally. No lymphangitis/lymphedema. HEAD/NECK normocephalic atraumatic, no facial trauma, neck is supple. RESPIRATORY respiratory effort normal, speaks in full sentences, no tripod position, no accessory muscle use. Lungs clear to auscultation without rhonchi, wheezes, rales CARDIAC Regular rate and rhythm, no edema. ABDOMINAL Soft, ND/NT. No evidence of fluid wave. No pulsatile masses on exam, rebound tenderness, Gonzalez sign or pain over Mcburney's point. MUSCLES/EXTREMITIES No abnormal range of motion, no swelling. SKIN Warm, pink and dry. No rashes, dermatoses, petechiae or lesions. Left foot erythema and edema NEUROLOGICAL Speech is clear and appropriate. Normal level of consciousness. Gait and coordination are normal. 5/5 strength in all extremities. PSYCH Normal mood and affect. Judgement/competence is appropriate Results & Data Results & Data Vital Signs (Past 12 Hours) Vital Signs Temp Pulse Pulse Resp BP Pulse Ox O2 Del Method 02/16/25 07:59 36.9 C 78 16 113/66 94 Room Air 02/16/25 05:45 80 02/16/25 03:08 36.8 C 78 20 100/65 92 Room Air 02/15/25 23:35 36.7 C 77 20 109/71 90 Room Air 02/15/25 22:03 82 PG Care Time/CCT Total # of Minutes Spent Total Time Spent with Patient: Total time spent is greater than 50% in coordination of care (as documented) at patient's floor/unit and/or counseling patient: Coding Level of Care Code 66845 SUB INP/OBS CARE 2/35MIN Diagnoses Diabetic infection of left foot E11.628; L08.9 Hyperglycemia due to diabetes mellitus E11.65 Hyperlipidemia E78.5
--- NOTE | 2025-02-16 09:30 | Podiatry Progress Note ---
Date of Service February 16, 2025 Assessment & Plan (1) Diabetes mellitus type 2, uncontrolled: (2) Diabetic infection of left foot: (3) Tobacco abuse: (4) Hyperlipidemia: (5) PVD (peripheral vascular disease): (6) Morbid obesity: Plan -All notes, labs and imaging reviewed - Vascular studies show normal MEGHAN. Can follow up with Dr. Marshall outpatient for Cardiovascular needs. Infectious disease consulted, appreciate recommendations Cultures: Surgical cultures pending -Dressing: xeroform, 4x4s, Kerlix and EDISON to left foot. QoD changes -S/P left foot incision and drainage 02/15/25. Surgical cultures are pending. -Scheduled for left foot Delayed Primary Closure 02/17/25. -Patient can have light breakfast tomorrow morning. Case is tentatively scheduled for 5pm. Admission and Anticipated Discharge Date Admission Date: February 14, 2025 Subjective s/p left foot incision and drainage 02/15/25. Patient states that pain to her l eft foot has decreased but it is still painful. No acute events overnight. No new pedal complaints. Review of Systems Review of Systems: All systems reviewed & are unremarkable except as noted in HPI & below Physical Exam Cardiovascular: Extremities: normal capillary refill DP and PT pulses mildly palpable Musculoskeletal: Extremities: strength 5/5 throughout Skin: + wound, + dry skin and + incision Incision to the left foot is intact. Moderate drainage noted today. Pain to palpation and erythema. Neurologic: Protective and light touch sensation diminished Results & Data Results & Data Vital Signs (Past 12 Hours) Vital Signs Temp Pulse Pulse Resp BP Pulse Ox O2 Del Method 02/16/25 07:59 36.9 C 78 16 113/66 94 Room Air 02/16/25 05:45 80 02/16/25 03:08 36.8 C 78 20 100/65 92 Room Air 02/15/25 23:35 36.7 C 77 20 109/71 90 Room Air 02/15/25 22:03 82
[2025-02-17] MEDS: LACTATED RINGER'S 1,000 ML IV SCH (06:10)
[2025-02-17 06:57] LABS: Hematocrit (blood only) 35.5 % (37.0-47.0); Hemoglobin 11.7 g/dl (12.0-16.0); Immature Granulocytes # (auto) 0.03 K/uL (0.01-0.20); Immature Granulocytes % (auto) 0.3 %; Mean Corpuscular Hemoglobin 26.9 pg (25.0-34.0); Mean Corpuscular Volume 81.6 fL (80.0-100.0); Platelet Count 165 K/uL (130-400); RDW Standard Deviation 41.7 fL (36.4-46.3); Red Blood Count 4.35 M/uL (4.20-5.40); White Blood Count 9.08 K/ul (4.8-10.8)
[2025-02-17 07:17] LABS: Alanine Aminotransferase 45.0 U/L (7-52); Albumin Globulin Ratio 1.1 (0.9-2); Alkaline Phosphatase 119.0 U/L (34-104); Anion Gap 4.0 (3-11); Bilirubin,Total 0.4 mg/dl (0.2-1.0); Blood Urea Nitrogen 10.0 mg/dl (6-23); Calcium 8.4 mg/dl (8.6-10.3); Carbon Dioxide 29.0 mmol/L (21-32); Chloride 105.0 mmol/L (98-107); Creatinine Clr Calc Pharmacy 86.9 ml/min; Globulin 2.8 gm/dl (2.5-4.0); Glucose 155.0 mg/dl (70-99(Fasting)); Magnesium 1.5 mg/dl (1.7-2.4); Potassium 3.8 mmol/L (3.5-5.1); Sodium 138.0 mmol/L (136-145); Total Protein 5.8 gm/dl (6.0-8.3)
--- NOTE | 2025-02-17 07:59 | Infectious Disease Progress Nt ---
Date of Service February 17, 2025 Assessment & Plan (1) Cellulitis of left foot: (2) Hyperglycemia due to diabetes mellitus: Plan Problems: #L foot cellulitis/abscess s/p I&D (02/15/25) #T2DM Micro: 02/15 OR L foot tissue cx: GBS. GS no org 02/15 OR L foot abscess cx: GBS. GS no org 02/14 Wound cx: GBS, Anaerococcus vaginalis, low counts of probable skin yudelka Abx: Vanc 02/14 - present Zosyn 02/14 - present 44 yo F with diabetes, tobacco use, necrobiosis lipoidica diabeticorum, hidradenitis suppurativa, morbid obesity who presented on 02/14 with worsening L foot pain, swelling, and erythema. On presentation, pt was afebrile, VSS. Labs showed WBC 9.8. CT foot with contrast showed extensive soft tissue edema throughout the lower leg, ankle, foot, most pronounced along lateral lower leg and ankle and dorsal foot. No well-developed drainable fluid collection or abscess is seen. No acute osseous abnormality. She was started on vanc and Zosyn. Superficial wound culture is growing GBS, Anaerococcus vaginalis, low counts probable skin yudelka. ABIs were normal. Podiatry was consulted and took pt to OR for I&D on 02/15. Per operative note, L fourth webspace with drainage, erythema, edema, fluctuance, with ~3 cc purulent drainage. Nonviable tissue debrided and excised. OR cultures growing GBS. Returning to OR 02/17 for delayed primary closure. Recommendations: - Stopped vanc and Zosyn - Started ceftriaxone 2 g IV q24h and metronidazole 500 mg PO BID - Anticipate PO antibiotic regimen on discharge Will continue to follow. Admission and Anticipated Discharge Date Admission Date: February 14, 2025 Subjective This patient recommendation is based on a telemedicine consult request which was completed asynchronously through chart review and information provided by the primary physician. The patient was not seen or examined today. The evaluation is consultative in nature and all patient care and treatment decisions can either be accepted or rejected by the patient's primary hospital-based treating physician using their own independent medical judgment for their patient. Time Spent Reviewing Chart: 11 - 20 minutes Afebrile without leukocytosis OR cultures growing GBS Results & Data Vital Signs (Past 12 Hours) Vital Signs Temp Pulse Pulse Pulse Resp BP Pulse Ox 02/17/25 06:05 37.1 C 82 16 104/70 94 02/17/25 05:40 74 02/17/25 02:49 36.7 C 77 18 112/73 91 02/17/25 00:00 02/16/25 23:11 36.5 C 81 18 108/71 89 L 02/16/25 22:00 83 02/16/25 19:59 36.9 C 78 18 110/67 92 Pulse Ox O2 Del Method O2 Del Method 02/17/25 06:05 Room Air 02/17/25 05:40 02/17/25 02:49 Room Air 02/17/25 00:00 92 Room Air 02/16/25 23:11 Room Air 02/16/25 22:00 02/16/25 19:59 Room Air Laboratory Results Short CBC 02/16/25 02/17/25 Range/Units 07:53 06:25 WBC 8.25 9.08 (4.8-10.8) K/ul Hgb 11.8 L 11.7 L (12.0-16.0) g/dl Hct 35.8 L 35.5 L (37.0-47.0) % Plt Count 159 165 (130-400) K/uL BMP 02/16/25 02/17/25 07:53 06:25 Sodium 137 138 Potassium 4.0 3.8 Chloride 104 105 Carbon Dioxide 29 29 BUN 8 10 Creatinine 0.85 0.96 Glucose 214 H 155 H Calcium 8.1 L 8.4 L Liver Function 02/16/25 02/17/25 Range/Units 07:53 06:25 Total Bilirubin 0.8 0.4 (0.2-1.0) mg/dl AST 101 H 42 H (13-39) U/L ALT 58 H 45 (7-52) U/L Alkaline Phosphatase 132 H 119 H (34-104) U/L Albumin 3.0 L 3.0 L (3.4-5.0) gm/dl
[2025-02-17] MEDS: MAGNESIUM SULFATE / D5W 1 GM/100 ML BAG IV SCH (08:45)
[2025-02-17] MEDS: metroNIDAZOLE 500 MG TAB PO SCH (08:46)
--- NOTE | 2025-02-17 10:38 | Hospitalist Progress Note ---
Date of Service February 17, 2025 Assessment & Plan (1) Diabetic infection of left foot: Plan: -podiatry consult appreciated -f/u MEGHAN -ID consulted -Percocet and morphine for pain control -s/p I&D -awaiting cultures -con't dressing changes as per podiatry -abx changed to rocephin/flagyl as per ID -pt to have left foot delayed primary closure today 02/17 (2) Hyperglycemia due to diabetes mellitus: Plan: Continue glargine RISS (3) Hyperlipidemia: Plan: -con't crestor Plan The patient is a 44-year-old female with a past medical history including hyperglycemia associated with diabetes mellitus, tobacco abuse, necrobiosis lipoid diabeticorum, hidradenitis suppurativa, depression with anxiety, essential hypertriglyceridemia, morbid obesity, and vitamin D deficiency. She presents to the emergency department with worsening left foot pain, swelling and erythema. In the emergency department she underwent a CT scan of left foot, which showed extensive soft tissue edema throughout the lower leg, ankle and foot, which is most consistent with cellulitis and abscess. She has been referred for evaluation for admission. In emergency department she was started on vancomycin IV and Zosyn IV. Admission and Anticipated Discharge Date Admission Date: February 14, 2025 Review of Systems Review of Systems: CONST: Negative for fever, body aches and chills. HENT: Negative for neck pain/stiffness, headache, congestion, sore throat, swelling. EYES: Negative for discharge/pain or vision changes. RESP: Negative for cough/hemoptysis and shortness of breath. CV: Negative chest pain, difficulty breathing, palpitations. ABD: Negative pain, nausea, vomiting. : Negative increase frequency, dysuria, blood in urine or stool. MUSC: Negative for muscle aches, edema. SKIN: Negative rash, lesions/sores. NEURO: Negative headache, dizziness, weakness. Physical Exam Physical Exam: GENERAL APPEARANCE NAD, activity normal for age, well developed/ well nourished, no cyanosis, pallor, or diaphoresis. EYES lids/conjunctiva normal. EARS/NOSE/THROAT Mucous membranes moist, nares normal, lips/teeth normal uvula midline without oral pharyngeal erythema, exudate or swelling TMs normal bilaterally. No lymphangitis/lymphedema. HEAD/NECK normocephalic atraumatic, no facial trauma, neck is supple. RESPIRATORY respiratory effort normal, speaks in full sentences, no tripod position, no accessory muscle use. Lungs clear to auscultation without rhonchi, wheezes, rales CARDIAC Regular rate and rhythm, no edema. ABDOMINAL Soft, ND/NT. No evidence of fluid wave. No pulsatile masses on exam, rebound tenderness, Gonzalez sign or pain over Mcburney's point. MUSCLES/EXTREMITIES No abnormal range of motion, no swelling. SKIN Warm, pink and dry. No rashes, dermatoses, petechiae or lesions. Left foot erythema and edema NEUROLOGICAL Speech is clear and appropriate. Normal level of consciousness. Gait and coordination are normal. 5/5 strength in all extremities. PSYCH Normal mood and affect. Judgement/competence is appropriate Results & Data Results & Data Vital Signs (Past 12 Hours) Vital Signs Temp Pulse Pulse Pulse Resp BP Pulse Ox 02/17/25 08:07 37.1 C 81 81 12 105/66 95 02/17/25 06:05 37.1 C 82 16 104/70 94 02/17/25 05:40 74 02/17/25 02:49 36.7 C 77 18 112/73 91 02/17/25 00:00 02/16/25 23:11 36.5 C 81 18 108/71 89 L Pulse Ox O2 Del Method O2 Del Method 02/17/25 08:07 Room Air 02/17/25 06:05 Room Air 02/17/25 05:40 02/17/25 02:49 Room Air 02/17/25 00:00 92 Room Air 02/16/25 23:11 Room Air PG Care Time/CCT Total # of Minutes Spent Total Time Spent with Patient: Total time spent is greater than 50% in coordination of care (as documented) at patient's floor/unit and/or counseling patient: Coding Level of Care Code 80230 SUB INP/OBS CARE 2/35MIN Diagnoses Diabetic infection of left foot E11.628; L08.9 Hyperglycemia due to diabetes mellitus E11.65 Hyperlipidemia E78.5
[2025-02-17] MEDS: cefTRIAXone SODIUM 2,000 MG/50 ML BAG IV SCH (12:03)
[2025-02-17] MEDS: ONDANSETRON INJ 2 MG/ML 2 ML VIAL IV PRN (16:40)
--- NOTE | 2025-02-17 16:54 | Anesthesiology Consultation ---
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 Consults Requested none History Surgery Operation Date: 02/15/25 10:30 Proposed Procedures p Left Foot Incision and Drainage - Renee Yost DPM Operation Date: 02/17/25 07:00 Proposed Procedures p Left Foot Delayed Primary Closure - Renee Yost DPM Height/Weight Height: 5 ft 1 in Weight: 112.3 kg Allergies Allergy/AdvReac Type Severity Reaction Status Date / Time acetaminophen Allergy Intermediate Vomiting Verified 12/15/24 14:05 hydromorphone [From Dilaudid] AdvReac Severe "I forget Verified 12/15/24 14:05 to breath" levofloxacin [From Levaquin] AdvReac Mild dizziness Verified 12/15/24 14:05 and rash Quinolones AdvReac Mild rapid eye Verified 12/15/24 14:05 movements, dizziness Medications Home Medications Medication Instructions Recorded Confirmed Last Taken blood-glucose meter (OneTouch #1 ea 04/05/22 12/15/24 Unknown Ultra2 Meter kit) blood sugar diagnostic (Contour #100 ea 12/07/24 12/15/24 Unknown Next Test Strips) lancets (Microlet Lancet) #100 ea 12/07/24 12/15/24 Unknown pen needle, diabetic 32 gauge x #100 ea 12/07/24 12/15/24 Unknown 5/32" (Pen Needle) rosuvastatin 20 mg tablet 20 mg PO QAM High cholesterol #30 12/07/24 02/14/25 02/14/25 tabs blood-glucose sensor (Dexcom G7 #3 ea 01/11/25 01/11/25 Unknown Sensor device) blood-glucose,field service specialist,cont #1 ea 01/11/25 01/11/25 Unknown (Dexcom G7 [employer]) insulin glargine 100 unit/mL (3 34 unit subcut DAILY 01/11/25 02/14/25 02/14/25 mL) subcutaneous pen (Lantus Solostar U-100 Insulin) metformin 500 mg tablet,extended 500 mg PO BID #60 tabs 01/11/25 02/14/25 02/14/25 release 24 hr Active Medications Generic Name Dose Route Start Last Admin Trade Name Freq PRN Reason Stop Dose Admin Lactated Ringer's 1,000 mls @ 15 mls/hr 02/17/25 05:45 02/17/25 06:10 Lr IV 02/20/25 05:44 15 mls/hr .Q24H [facility] Administration Ceftriaxone Sodium 2,000 mg in 50 mls @ 100 mls/hr 02/17/25 12:00 02/17/25 12:37 Rocephin IV 02/24/25 11:59 Infused Q24H [facility]MAN Infusion Insulin Aspart 0 units 02/15/25 07:30 02/17/25 12:23 Insulin Aspart Per Unit Charge SC 03/17/25 07:29 4 units ACHS [facility]MAN Administration Insulin Glargine 34 units 02/15/25 09:00 02/17/25 09:54 Lantus Per Unit Charge SQ 03/17/25 08:59 34 units DAILY [facility] Administration Metformin HCl 500 mg 02/15/25 21:00 02/17/25 08:45 Metformin Hcl Er 500 Mg Tabcr PO 03/17/25 20:59 500 mg BID GERMAN Administration Metronidazole 500 mg 02/17/25 09:00 02/17/25 08:46 Metronidazole 500 Mg Tab PO 02/24/25 08:59 500 mg BID GERMAN Administration Protocol Morphine Sulfate 4 mg 02/15/25 10:00 02/16/25 23:28 Morphine Sulfate 4 Mg/Ml 1 Ml Carp\\Vial IV 03/01/25 09:59 4 mg Q4H PRN Administration Severe Pain (Scale 7, 8, 9,10) Ondansetron HCl 4 mg 02/15/25 00:47 02/17/25 16:40 Ondansetron Inj 2 Mg/Ml 2 Ml Vial IV 03/17/25 00:46 4 mg Q6H PRN Administration NAUSEA/VOMITING Oxycodone/Acetaminophen 1 tab 02/15/25 09:36 02/17/25 08:50 Oxycodone/Acetaminophen 5mg/325mg Tab PO 03/01/25 09:35 1 tab Q4H PRN Administration Pain Rosuvastatin Calcium 20 mg 02/15/25 09:00 02/17/25 08:45 Rosuvastatin Calcium 20 Mg Tab PO 03/17/25 08:59 20 mg QAM GERMAN Administration NPO Date Last Intake of Fluids: 02/16/25 Time Last Intake of Fluids: 18:00 Date Last Intake of Solids: 02/16/25 Time Last Intake of Solids: 21:00 Past Medical History Medical History Encounter for pre-operative examination Morbid obesity Diabetes mellitus type 2, uncontrolled Tobacco abuse Diabetic infection of left foot PVD (peripheral vascular disease) Acute cholecystitis Cholecystitis Cellulitis and abscess of upper arm Past Family History Family History Mother Diabetes Father Lung cancer Myocardial infarction Grandfather Myocardial infarction Aunt Breast cancer Ovarian cancer Uncle Alzheimer disease Denies family history of Prostate cancer Colorectal cancer Past Surgical History Surgical History Hx laparoscopic cholecystectomy (12/01/24) Laparoscopic Cholecystectomy - Carlos Wilson DO History of D&C Social History Smoking Status: Current every day smoker Smoking cigarettes per day: 10 cigarettes/half a pack a day Do You Dip or Chew Tobacco: No Hx Alcohol Use: No Hx Substance Use: No substance use type: does not use Review of Systems ROS Unobtainable: All systems reviewed & are unremarkable except as noted in HPI & below Physical Exam Vital Signs Last Vital Signs Temp 36.7 C 02/17/25 16:37 Pulse 74 02/17/25 15:42 Resp 16 02/17/25 15:42 BP 105/65 02/17/25 15:42 Pulse Ox 96 02/17/25 15:42 O2 Del Method Room Air 02/17/25 15:42 O2 Flow Rate 0 02/15/25 18:00 Testing Laboratory Results 02/17/25 06:25 02/17/25 06:25 02/14/25 21:32 Gram Stain - Final Foot Aerobic and Anaerobic Culture - Preliminary Strep agalactiae (group B) Anaerococcus vaginalis Peptoniphilus olsenii 02/15/25 Unknown Gram Stain - Final Foot,Left Aerobic and Anaerobic Culture - Preliminary Strep agalactiae (group B) 02/15/25 Unknown Gram Stain - Final Foot,Left Aerobic and Anaerobic Culture - Preliminary Strep agalactiae (group B) 02/17/25 02/17/25 02/17/25 16:48 12:11 08: POC Glucose 137 H 225 H 158 H 02/17/25 06:01 POC Glucose 158 H 02/15/25 16:17 POC Ur Test NEG Other Testing Electrocardiogram Date: 12/01/24 DICTATED BY: Bharat Red MD Test Reason : Blood Pressure : */* mmHG Vent. Rate : 78 BPM Atrial Rate : 78 BPM P-R Int : 132 ms QRS Dur : 84 ms QT Int : 410 ms P-R-T Axes : 52 27 63 degrees QTcB Int : 467 ms Normal sinus rhythm Cannot rule out Anterior infarct , age undetermined Abnormal ECG When compared with ECG of 18-May-2013 10:08, No significant change Reconfirmed by Bharat Red ([id number]) on 12/01/2024 10:42:15 PM
[2025-02-17] MEDS ORDERED: LIDOCAINE 2% 2 ML VIAL/AMP(20MG/ML) INFIL ONE (17:01)
[2025-02-17] MEDS ORDERED: DEXAMETHASONE SOD INJ 4 MG/ML VIAL ONE (17:01)
[2025-02-17] MEDS ORDERED: MIDAZOLAM HCL 1 MG/ML 2ML VIAL ONE (17:01)
[2025-02-17] MEDS ORDERED: ONDANSETRON INJ 2 MG/ML 2 ML VIAL ONE (17:01)
[2025-02-17] MEDS ORDERED: PROPOFOL IV EMULSION 10 MG/ML 20 ML VIAL IV ONE ×2 (17:01→17:46)
[2025-02-17] MEDS ORDERED: ATROPINE SULFATE 0.1 MG/ML 10ML SYR IV PRN (17:11)
[2025-02-17] MEDS ORDERED: ONDANSETRON INJ 2 MG/ML 2 ML VIAL IV PRN (17:11)
--- NOTE | 2025-02-17 17:16 | History & Physical Bridge Note ---
Date of Service February 17, 2025 History & Physical Bridge Note I have examined the patient, reviewed the History & Physical and in the interval since the performance of the History & Physical I have noted the following changes of clinical significance: no changes noted Patient to have Left foot delayed primary closure today 02/17/25. Patient understands the procedure and all questions were answered today.
[2025-02-17] MEDS ORDERED: KETAMINE HCL 10MG/ML SYR ONE (17:32)
[2025-02-17] MEDS: BUPIVACAINE 0.5 % 5 MG/1 ML MPF 30ML VIAL ONE (17:51)
--- NOTE | 2025-02-17 17:59 | Post Operative Brief Note ---
Immediate Post Op Note Date of Surgery February 17, 2025 Pre & Post Diagnosis Operation Date: 02/17/25 07:00 Pre-Op Diagnosis: Left foot diabetic ulcer/ cellulitis Post-Op Diagnosis: Left foot diabetic ulcer/ cellulitis I identified the patient and participated in the time-out.: Yes Procedure Operation Date: 02/17/25 07:00 Actual Procedures p Left Foot Delayed Primary Closure(Left) - Renee Yost DPM Surgeon Renee Yost DPM Fixed Wing Aircraft Crew Chief n/a Estimated Blood Loss 3 Findings Consistent with Post-Op Diagnosis consistent with operative note Complications n/a
--- NOTE | 2025-02-17 18:08 | Operative Report ---
Post Operative Report Pre & Post Diagnosis Operation Date: 02/17/25 07:00 Pre-Op Diagnosis: Left foot diabetic ulcer/ cellulitis Post-Op Diagnosis: Left foot diabetic ulcer/ cellulitis I identified the patient and participated in the time-out.: Yes Procedure Operation Date: 02/17/25 07:00 Actual Procedures p Left Foot Delayed Primary Closure(Left) - Renee Yost DPM Surgeon Renee Yost DPM Metal Expediter n/a Estimated Blood Loss 3 Findings Consistent with Post-Op Diagnosis No purulent drainage noted Specimens n/a Indications Closure of deep surgical incision. Patient underwent left foot incision and drainage on 02/15/2025. Incision was left open to allow for excess purulent drainage. Patient was down to the level of muscle and tissue. -Patient evaluated and planned procedures were discussed in detail including the risk and benefits, including possibility of not healing and the need for further surgery. Patient her steroid was explained to her and that no guarantees were given. The patient had all questions answered and has agreed to proceed with surgery. The consent for surgery and consent for anesthesia were signed by the patient. Description of Procedure Following satisfactory preop evaluation patient was brought into the OR and placed in the OR table in the supine position. MAC sedation was administered by anesthesia. Following sedation 10 cc of 0.5% Marcaine plain was then injected into the left foot by 2 point block. The foot was then prepped and draped in the usual sterile manner load of the surgical field. Complex wound closure left foot: Attention was then directed to the left foot at the site of the previous incision and drainage of the fourth webspace. The wound was noted to have intact sutures proximal and distal to a 1 cm opening that was noted to have minimal drainage and healthy margins. There was then flushed with copious amounts of saline solution. All nonviable tissue was then debrided. A complex wound closure in a layered fashion using 3-0 nylon suture the skin was then closed. Dressing consisting of Xeroform, 4 x 4 gauze, Kerlix and Sky wrap was applied to the left foot. The patient tolerated anesthesia and the procedure well and was transported back to the floor. Orders for the following were written. Notify medicine return to floor Resume all preoperative medications, orders, diet Elevate both legs continue to offload with boots while in bed -Keep dressings CDI do not remove left foot dressings to be managed by podiatry Partial weightbearing to left heel in surgical shoe I attest to the content of the Intraoperative Record and any orders documented therein. Any exceptions are noted below.
--- NOTE | 2025-02-17 18:11 | Anesthesiology Progress Note ---
Date of Service February 17, 2025 Anesthesia Post Procedure Vital Signs Vital Signs: Temp Pulse Pulse Pulse Pulse Resp BP 02/17/25 18:10 71 16 115/64 02/17/25 17:59 37 C 75 12 101/64 02/17/25 17:15 37 C 75 21 02/17/25 16:37 36.7 C 02/17/25 15:42 37.0 C 74 16 02/17/25 12:59 78 02/17/25 11:56 37.3 C 75 16 97/63 L 02/17/25 08:07 37.1 C 81 81 12 105/66 02/17/25 06:05 37.1 C 82 16 104/70 02/17/25 05:40 74 02/17/25 02:49 36.7 C 77 18 112/73 02/17/25 00:00 02/16/25 23:11 36.5 C 81 18 108/71 02/16/25 22:00 83 02/16/25 19:59 36.9 C 78 18 110/67 BP Pulse Ox Pulse Ox O2 Del Method O2 Del Method O2 Flow Rate 02/17/25 18:10 99 Oxymask 3 02/17/25 17:59 96 Oxymask 6 02/17/25 17:15 136/71 92 Room Air 02/17/25 16:37 02/17/25 15:42 105/65 96 Room Air 02/17/25 12:59 02/17/25 11:56 95 Room Air 02/17/25 08:07 95 Room Air 02/17/25 06:05 94 Room Air 02/17/25 05:40 02/17/25 02:49 91 Room Air 02/17/25 00:00 92 Room Air 02/16/25 23:11 89 L Room Air 02/16/25 22:00 02/16/25 19:59 92 Room Air Pain Intensity Left Foot: Pain Intensity: 4 Transfer of Care Handoff Completed per policy Notes Mental Status: alert / awake / arousable Patient Amnestic to Procedure: Yes Nausea / Vomiting: adequately controlled Pain: adequately controlled Airway Patency, RR, SpO2: stable & adequate BP & HR: stable & adequate Hydration State: stable & adequate Anesthetic Complications: no major complications apparent and Pt Satisfied with anesthetic care
[2025-02-17 23:26] VITALS: RESP 18
[2025-02-18 06:28] LABS: Creatinine Clr Calc Pharmacy 94.8 ml/min
--- NOTE | 2025-02-18 07:14 | Podiatry Progress Note ---
Date of Service February 18, 2025 Assessment & Plan (1) Diabetes mellitus type 2, uncontrolled: (2) Diabetic infection of left foot: (3) Tobacco abuse: (4) Hyperlipidemia: (5) PVD (peripheral vascular disease): (6) Morbid obesity: Plan -All notes, labs and imaging reviewed - Vascular studies show normal MEGHAN. Can follow up with Dr. Marshall outpatient for Cardiovascular needs. Infectious disease consulted, appreciate recommendations -S/P left foot incision and drainage 02/15/25. -S/P left foot delayed primary closure 02/17/25. -Recommend Home health care for dressing changes. -Dressing: Betadine soaked adaptic, 4x4s, Kerlix and EDISON to left foot. Every other day changes -Partial weightbearing in surgical shoe to left lower extremity. -Patient is okay to be discharged from podiatry perspective once medically cleared by all other specialties. -Follow up at [facility] [place] office Saturday02/23/25. Admission and Anticipated Discharge Date Admission Date: February 14, 2025 Subjective Patient is s/p left foot incision and drainage 02/15/25 and Left foot delayed primary closure 02/17/25. States pain has decreased. No other or new pedal complaints this morning. Physical Exam Cardiovascular: Extremities: normal capillary refill Musculoskeletal: Extremities: strength 5/5 throughout Skin: + wound, + skin atrophy, + dry skin, + e rythema and + incision Incision is fully closed. No coapting or gaping noted. Erythema and edema to the dorsal lateral foot. Results & Data Results & Data Vital Signs (Past 12 Hours) Vital Signs Temp Pulse Pulse Resp BP Pulse Ox O2 Del Method 02/18/25 02:25 36.5 C 92 H 18 127/78 93 Room Air 02/17/25 23:53 37.3 C 92 H 18 147/77 H 93 Room Air 02/17/25 23:10 36.8 C 79 18 119/76 92 Room Air 02/17/25 22:13 77 15 113/74 91 Room Air 02/17/25 22:06 75 02/17/25 21:10 36.9 C 74 16 119/80 96 Room Air 02/17/25 20:12 36.9 C 77 16 144/83 H 98 Room Air 02/17/25 19:40 36.9 C 78 16 137/82 98 Room Air
--- NOTE | 2025-02-18 08:55 | Infectious Disease Progress Nt ---
Date of Service February 18, 2025 Assessment & Plan (1) Cellulitis of left foot: (2) Hyperglycemia due to diabetes mellitus: Plan Problems: #L foot cellulitis/abscess s/p I&D (02/15/25) #T2DM Micro: 02/15 OR L foot tissue cx: GBS. GS no org 02/15 OR L foot abscess cx: GBS. GS no org 02/14 Wound cx: GBS (S penicillin), Anaerococcus vaginalis, Peptoniphilus olsenii, low counts of probable skin yudelka Abx: Ceftriaxone 02/17 - present Metronidazole 02/17 - present Vanc 02/14 - 02/16 Zosyn 02/14 - 02/17 44 yo F with diabetes, tobacco use, necrobiosis lipoidica diabeticorum, hidradenitis suppurativa, morbid obesity who presented on 02/14 with worsening L foot pain, swelling, and erythema, admitted wtih L foot cellulitis and abscess. On presentation, pt was afebrile with WBC 9.8. CT foot with contrast showed extensive soft tissue edema throughout the lower leg, ankle, foot, most pronounced along lateral lower leg and ankle and dorsal foot. No well-developed drainable fluid collection or abscess is seen. No acute osseous abnormality. She was started on vanc and Zosyn. Superficial wound culture is growing GBS, Anaerococcus vaginalis, Peptoniphilus, low counts probable skin yudelka. ABIs were normal. Podiatry took pt to OR for I&D on 02/15. Per operative note, L fourth webspace with drainage, erythema, edema, fluctuance, with ~3 cc purulent drainage. Nonviable tissue debrided and excised. OR cultures growing GBS. Returned to OR 02/17 for delayed primary closure. Recommendations: - Will transition to Augmentin 875 mg PO BID through 02/23 to complete a 7 day course of antibiotics from last debridement Will sign off. Admission and Anticipated Discharge Date Admission Date: February 14, 2025 Subjective This patient recommendation is based on a telemedicine consult request which was completed asynchronously through chart review and information provided by the primary physician. The patient was not seen or examined today. The evaluation is consultative in nature and all patient care and treatment decisions can either be accepted or rejected by the patient's primary hospital-based treating physician using their own independent medical judgment for their patient. An e-consult was performed as the video cart is not functioning. Time Spent Reviewing Chart: 11 - 20 minutes Returned to OR yesterday for delayed primary closure Results & Data Vital Signs (Past 12 Hours) Vital Signs Temp Pulse Pulse Pulse Resp BP BP 02/18/25 08:36 36.9 C 73 18 115/71 02/18/25 05:53 74 02/18/25 02:25 36.5 C 92 H 18 127/78 02/17/25 23:53 37.3 C 92 H 18 147/77 H 02/17/25 23:10 36.8 C 79 18 119/76 02/17/25 22:13 77 15 113/74 02/17/25 22:06 75 02/17/25 21:10 36.9 C 74 16 119/80 Pulse Ox O2 Del Method 02/18/25 08:36 94 Room Air 02/18/25 05:53 02/18/25 02:25 93 Room Air 02/17/25 23:53 93 Room Air 02/17/25 23:10 92 Room Air 02/17/25 22:13 91 Room Air 02/17/25 22:06 02/17/25 21:10 96 Room Air Laboratory Results BMP 02/18/25 05:38 Creatinine 0.87 Medications Administered Current Inpatient Medications Dextrose (Dextrose 50% 50 Ml Syringe) 25 - 50 ml IV UD PRN; Protocol PRN Reason: Hypoglycemia Protocol Stop: 03/17/25 00:59 Glucagon (Glucagon For Inj 1 Mg Vial) 1 mg SQ UD PRN; Protocol PRN Reason: Hypoglycemia Protocol Stop: 03/17/25 00:59 Glucose (Glucose 40% Gel 15 Gm Tube) 15 - 30 gm PO UD PRN; Protocol PRN Reason: Hypoglycemia Protocol Stop: 03/17/25 00:59 Glucose (Glucose 10 Tab/Tube) 4 - 8 tab PO UD PRN; Protocol PRN Reason: Hypoglycemia Protocol Stop: 03/17/25 00:59 Lactated Ringer's (Lr) 1,000 mls @ 15 mls/hr IV .Q24H GERMAN Stop: 02/20/25 05:44 Last Admin: 02/17/25 06:10 Dose: 15 mls/hr Ceftriaxone Sodium (Rocephin) 2,000 mg in 50 mls @ 100 mls/hr IV Q24H [facility]ERMAN Stop: 02/24/25 11:59 Last Infusion: 02/17/25 12:37 Dose: Infused Insulin Aspart (Insulin Aspart Per Unit Charge) 0 units SC ACHS [facility] Stop: 03/17/25 07:29 Last Admin: 02/18/25 08:35 Dose: 9 units Insulin Glargine (Lantus Per Unit Charge) 34 units SQ DAILY [facility] Stop: 03/17/25 08:59 Last Admin: 02/18/25 08:35 Dose: 34 units Metformin HCl (Metformin Hcl Er 500 Mg Tabcr) 500 mg PO BID [facility] Stop: 03/17/25 20:59 Last Admin: 02/18/25 08:34 Dose: 500 mg Metronidazole (Metronidazole 500 Mg Tab) 500 mg PO BID [facility]; Protocol Stop: 02/24/25 08:59 Last Admin: 02/18/25 08:34 Dose: 500 mg Miscellaneous (Carbohydrates For Hypoglycemia ) 15 - 30 gm PO UD PRN PRN Reason: Hypoglycemia Treatment Stop: 03/17/25 00:59 Morphine Sulfate (Morphine Sulfate 4 Mg/Ml 1 Ml Carp\Vial) 4 mg IV Q4H PRN PRN Reason: Severe Pain (Scale 7, 8, 9,10) Stop: 03/01/25 09:59 Last Admin: 02/16/25 23:28 Dose: 4 mg Ondansetron HCl (Ondansetron Inj 2 Mg/Ml 2 Ml Vial) 4 mg IV Q6H PRN PRN Reason: NAUSEA/VOMITING Stop: 03/17/25 00:46 Last Admin: 02/17/25 16:40 Dose: 4 mg Oxycodone/Acetaminophen (Oxycodone/Acetaminophen 5mg/325mg Tab) 1 tab PO Q4H PRN PRN Reason: Pain Stop: 03/01/25 09:35 Last Admin: 02/18/25 07:26 Dose: 1 tab Rosuvastatin Calcium (Rosuvastatin Calcium 20 Mg Tab) 20 mg PO QAM [facility] Stop: 03/17/25 08:59 Last Admin: 02/18/25 08:34 Dose: 20 mg
--- NOTE | 2025-02-18 09:57 | Discharge Summary ---
Discharge Summary Date of Service February 18, 2025 Principal Dx & Hospital Course #1 = Principal Diagnosis (1) Diabetic infection of left foot: -podiatry consult appreciated -f/u MEGHAN -ID consulted -Percocet and morphine for pain control -s/p I&D -awaiting cultures -con't dressing changes as per podiatry -abx changed to rocephin/flagyl as per ID -pt s/p have left foot delayed primary closure 02/17 -Follow up with podiatry 02/23 for dressing change -Discharged on Augmentin for 7 days as per ID (2) Hyperglycemia due to diabetes mellitus: Continue glargine RISS (3) Hyperlipidemia: -con't crestor Plan The patient is a 44-year-old female with a past medical history including hyperglycemia associated with diabetes mellitus, tobacco abuse, necrobiosis lipoid diabeticorum, hidradenitis suppurativa, depression with anxiety, essential hypertriglyceridemia, morbid obesity, and vitamin D deficiency. She presents to the emergency department with worsening left foot pain, swelling and erythema. In the emergency department she underwent a CT scan of left foot, which showed extensive soft tissue edema throughout the lower leg, ankle and foot, which is most consistent with cellulitis and abscess. She has been referred for evaluation for admission. In emergency department she was started on vancomycin IV and Zosyn IV. Admission HPI Per Admitting Provider The patient is a 44-year-old female with a past medical history including hyperglycemia associated with diabetes mellitus, tobacco abuse, necrobiosis lipoid diabeticorum, hidradenitis suppurativa, depression with anxiety, essential hypertriglyceridemia, morbid obesity, and vitamin D deficiency. She p resents to the emergency department with worsening left foot pain, swelling and erythema. In the emergency department she underwent a CT scan of left foot, which showed extensive soft tissue edema throughout the lower leg, ankle and foot, which is most consistent with cellulitis and abscess. She has been referred for evaluation for admission. In emergency department she was started on vancomycin IV and Zosyn IV. Discharge Exam GENERAL APPEARANCE NAD, activity normal for age, well developed/ well nourished, no cyanosis, pallor, or diaphoresis. EYES lids/conjunctiva normal. EARS/NOSE/THROAT Mucous membranes moist, nares normal, lips/teeth normal uvula midline without oral pharyngeal erythema, exudate or swelling TMs normal bilaterally. No lymphangitis/lymphedema. HEAD/NECK normocephalic atraumatic, no facial trauma, neck is supple. RESPIRATORY respiratory effort normal, speaks in full sentences, no tripod position, no accessory muscle use. Lungs clear to auscultation without rhonchi, wheezes, rales CARDIAC Regular rate and rhythm, no edema. ABDOMINAL Soft, ND/NT. No evidence of fluid wave. No pulsatile masses on exam, rebound tenderness, Gonzalez sign or pain over Mcburney's point. MUSCLES/EXTREMITIES No abnormal range of motion, no swelling. SKIN Warm, pink and dry. No rashes, dermatoses, petechiae or lesions. Left foot erythema and edema NEUROLOGICAL Speech is clear and appropriate. Normal level of consciousness. Gait and coordination are normal. 5/5 strength in all extremities. PSYCH Normal mood and affect. Judgement/competence is appropriate Discharge Plan Discharge Items Patient Disposition: Home - Self-Care Reason For Visit: LEFT FOOT DIABETIC ULCER/CELLULITIS Discharge Diagnosis: Left foot diabetic ulcer Condition on Discharge: Fair Activity: Resume your previous activity Non-emergency contact: Primary Care Provider Call non-emergency contact if: you have any medication questions Follow-up/Referrals: Dieudonne Duque, [Primary Care Provider] - Diet: Regular Addtl Attending Provider Instructions: Follow up podiatry 02/23 Pending Studies at Discharge: No Stand-Alone Forms: [facility] Medications and DC Order Prescriptions: New amoxicillin-pot clavulanate 875-125 mg Tablet 1 tab PO BIDM Qty: 14 0RF Continued (DME) blood-glucose meter [OneTouch Ultra2 Meter] Kit See Rx Instructions .MEDSUPPLY Qty: 1 0RF Rx Instructions: As directed rosuvastatin 20 mg tablet 20 mg PO QAM Qty: 30 3RF Rx Instructions: Take 1 tablet by mouth daily (DME) pen needle, diabetic [Pen Needle] 32 gauge x 5/32" needle See Rx Instructions .Route Qty: 100 3RF Rx Instructions: As directed (DME) Contour Next Test Strips Strip See Rx Instructions .Route Qty: 100 3RF Rx Instructions: Three times a day (DME) lancets [Microlet Lancet] Misc See Rx Instructions .Route Qty: 100 3RF Rx Instructions: Three times a day (DME) Dexcom G7 Sensor Device See Rx Instructions .Route Qty: 3 8RF Rx Instructions: Change sensor every 10 days (DME) Dexcom G7 [employer] Misc See Rx Instructions .Route Qty: 1 0RF Rx Instructions: Check glucose 4 times daily and as needed insulin glargine [Lantus Solostar U-100 Insulin] 100 unit/mL (3 mL) insulin pen 34 unit subcut DAILY metformin 500 mg tablet extended release 24 hr 500 mg PO BID Qty: 60 3RF Rx Instructions: Take 2 tablets by mouth daily Discharge Orders: Discharge Order (Routine); Ordered 02/18/25 Ordered By: Abdiel Bond/Other Patient Handouts: Nutrition for Wound Healing, Managing Type 2 Diabetes Admission Data Admit Date/Time: 02/14/25 22:19 Attending Provider: Abdiel Castillo Admit Provider: Tyrel Loco Primary Care Provider: Dieudonne Duque Other Providers: Renee Yost; Tyrel Loco Hospital Stay Data Consultations 02/14/25 21:49 Consult Podiatry Routine 02/14/25 23:01 ED Decision to Admit Stat 02/15/25 07:10 Consult Infectious Diseases Routine Procedures Performed Operation Date: 02/17/25 07:00 Actual Procedures p Left Foot Delayed Primary Closure(Left) - Renee Yost DPM Diagnostic Imagining Performed 02/14/25 18:24 CT foot LT w con Stat 02/15/25 06:10 US ankle brachial index [US ankle/brachial index ltd] Routine Pending Results Patient Have Any Pending Studies at Discharge: No Discharge Instructions Given to Patient (Per Discharging Provider) Follow up podiatry 02/23 Total Time Total Time Spent Total Time Spent (In Minutes): 50 Coding Level of Care Code 22814 INP/OBS DISCH >30 MIN Diagnoses Diabetic infection of left foot E11.628; L08.9 Hyperglycemia due to diabetes mellitus E11.65 Hyperlipidemia E78.5
[2025-02-18] MEDS: AMOXICILLIN/CLAVULANATE 875 MG TAB PO SCH (10:22)
[2025-02-18 11:31] VITALS: BP 110/67; TEMP 98.2; O2SAT 95
[2025-02-18 11:57] VITALS: PULSE 92
== END 2025-02-18 12:23 | disposition home or self-care (01) | DRG 623 ==
LOC: ED 17:53 → 2N 22:19 → SUATTDRO 22:19 → 2N 02-15 00:13